=== PATIENT | male | born 1935 | race Caucasian/White ===

== ENCOUNTER 2018-01-02 12:50 | Inpatient (IN) | payer OTHER, MEDICARE ==
--- NOTE | 2018-01-02 13:16 | ER Document Report ---
ED Medical Screen (RME) - General Chief Complaint: Leg Pain Stated Complaint: NAUSEA, DIFFICULTY BREATHING, TROUBLE WALKING Time Seen by Provider: 01/02/18 13:11 TRAVEL OUTSIDE OF THE [place] IN LAST 30 DAYS: No - HPI Notes: 01/02/18 13:15 Recently moved from [place] 4 weeks ago has a history of leg pain associated with electrolyte abnormalities requiring hospitalization. - Related Data Allergies/Adverse Reactions: No Known Allergies Allergy (Unverified 01/02/18 12:54) Past Medical History - Social History Frequency of alcohol use: None Drug Abuse: None Renal/ Medical History: Denies: Hx Peritoneal Dialysis Review of Systems - Review of Systems Neurological/Psychological: Weakness Physical Exam - Vital signs Vitals: Temp Pulse Resp BP Pulse Ox 97.4 F 62 17 106/62 97 01/02/18 13:00 01/02/18 13:00 01/02/18 13:00 01/02/18 13:00 01/02/18 13:00 - Respiratory Respiratory status: No respiratory distress Chest status: Nontender Breath sounds: Normal Chest palpation: Normal Course - Re-evaluation Re-evalutation: 01/02/18 13:16 I have greeted and performed a rapid initial assessment of this patient. A comprehensive ED assessment and evaluation of the patient, analysis of test results and completion of the medical decision making process will be conducted by additional ED providers. - Vital Signs Vital signs: Temp Pulse Resp BP Pulse Ox 97.4 F 62 17 106/62 97 01/02/18 13:00 01/02/18 13:00 01/02/18 13:00 01/02/18 13:00 01/02/18 13:00
[2018-01-02 13:49] LABS: ABSOLUTE EOSINOPHILS # (AUTO) 0.6 10^3/uL (0.0-0.6); ABSOLUTE LYMPHOCYTES (AUTO) 2.4 10^3/uL (0.5-4.7); ABSOLUTE MONOCYTES (AUTO) 0.4 10^3/uL (0.1-1.4); ABSOLUTE NEUT (AUTO) 1.8 10^3/uL (1.7-8.2); BASOPHILS % (AUTO) 0.8 % (0-2); EOSINOPHILS % (AUTO) 11.5 % (0-6); HEMOGLOBIN 13.7 g/dL (13.5-17.0); LYMPHOCYTES % (AUTO) 44.8 % (13-45); MEAN CORPUSCULAR HEMOGLOBIN 30.7 pg (27.0-33.4); MEAN CORPUSCULAR HGB CONC 35.2 g/dL (32.0-36.0); MEAN CORPUSCULAR VOLUME 87 fl (80-97); MONOCYTES % (AUTO) 8.2 % (3-13); PLATELET COUNT 189 10^3/uL (150-450); RED BLOOD COUNT 4.48 10^6/uL (4.35-5.55); RED CELL DISTRIBUTION WIDTH 13.2 % (11.5-14.0); SEGMENTED NEUTROPHILS % (AUTO) 34.7 % (42-78); TOTAL CELLS COUNTED % (AUTO) 100 %; WHITE BLOOD COUNT 5.2 10^3/uL (4.0-10.5)
[2018-01-02] MEDS ORDERED: NORMAL SALINE 1000 ML 1,000 ML IV PRN (13:51)
[2018-01-02] MEDS ORDERED: NORMAL SALINE 1000 ML 1,000 ML IV ONE ×2 (13:53→19:50)
[2018-01-02 14:10] LABS: ALANINE AMINOTRANSFERASE 19 U/L (21-72); ALBUMIN 4.6 g/dL (3.5-5.0); ALKALINE PHOSPHATASE 84 U/L (38-126); ANION GAP 10 (5-19); ASPARTATE AMINO TRANSFERASE 35 U/L (17-59); BILIRUBIN,DIRECT 0.2 mg/dL (0.0-0.4); BILIRUBIN,TOTAL 0.9 mg/dL (0.2-1.3); BLOOD UREA NITROGEN 18 mg/dL (7-20); CALCIUM 9.7 mg/dL (8.4-10.2); CARBON DIOXIDE 25 mmol/L (22-30); CHLORIDE 91 mmol/L (98-107); CREATINE KINASE 123 U/L (55-170); GLUCOSE 100 mg/dL (75-110); LIPASE 79.9 U/L (23-300); POTASSIUM 4.2 mmol/L (3.6-5.0); SODIUM 126.3 mmol/L (137-145); TOTAL PROTEIN 7.4 g/dL (6.3-8.2)
[2018-01-02 14:22] LABS: NT PRO BNP 276 pg/mL (<450)
[2018-01-02 14:25] LABS: TROPONIN I < 0.012 ng/mL
--- NOTE | 2018-01-02 14:25 | RADIOLOGY REPORT (SQ) ---
EXAM DESCRIPTION: CHEST SINGLE VIEW COMPLETED DATE/TIME: 01/02/2018 2:04 pm REASON FOR STUDY: weakness COMPARISON: None. EXAM PARAMETERS: NUMBER OF VIEWS: One view. TECHNIQUE: Single frontal radiographic view of the chest acquired. RADIATION DOSE: NA LIMITATIONS: None. FINDINGS: LUNGS AND PLEURA: No acute infiltrates. Bilateral nipple shadows are evident. No pleural effusion. No pneumothorax. MEDIASTINUM AND HILAR STRUCTURES: No masses. Contour normal. HEART AND VASCULAR STRUCTURES: Heart normal in size. Normal vasculature. BONES: Osteopenic with old healed bilateral rib fractures HARDWARE: None in the chest. OTHER: No other significant finding. IMPRESSION: No acute changes TECHNICAL DOCUMENTATION: JOB ID: [id number] [employer] All Rights Reserved Reading location - IP/workstation name: [email or web address]
--- NOTE | 2018-01-02 14:52 | ER Document Report ---
ED General - General Chief Complaint: Leg Pain Stated Complaint: NAUSEA, DIFFICULTY BREATHING, TROUBLE WALKING Time Seen by Provider: 01/02/18 13:11 Mode of Arrival: Wheelchair Information source: Relative Notes: This is an 82-year-old man with a history of hypothyroidism, hyponatremia that presents to the emergency room feeling weak (generalized), decreased p.o. intake for the past 4 days. Patient did have a syncopal episode was with which was witnessed by staff in the emergency room. His blood pressure was low at that time (systolic 95). Patient states he just does not feel well. TRAVEL OUTSIDE OF THE [place] IN LAST 30 DAYS: No - HPI Onset: Just prior to arrival Onset/Duration: Sudden Quality of pain: No pain Severity: None Pain Level: Denies Associated symptoms: denies: Chest pain, Fever, Shortness of breath Exacerbated by: Denies Relieved by: Denies Similar symptoms previously: Yes Recently seen / treated by doctor: No - Related Data Allergies/Adverse Reactions: No Known Allergies Allergy (Unverified 01/02/18 12:54) Past Medical History - General Information source: Patient - Social History Smoking Status: Never Smoker Cigarette use (# per day): No Chew tobacco use (# tins/day): No Frequency of alcohol use: None Drug Abuse: None Lives with: Family Family History: Reviewed & Not Pertinent Patient has suicidal ideation: No Patient has homicidal ideation: No - Past Medical History Cardiac Medical History: Reports: None Pulmonary Medical History: Reports: None EENT Medical History: Reports: None Neurological Medical History: Reports: None Endocrine Medical History: Reports: Hx Hypothyroidism Renal/ Medical History: Reports: None. Denies: Hx Peritoneal Dialysis Malignancy Medical History: Reports None GI Medical History: Reports: None Musculoskeltal Medical History: Reports None Skin Medical History: Reports None Psychiatric Medical History: Reports: None Surgical Hx: Negative Review of Systems - Review of Systems Constitutional: denies: Chills, Fever EENT: No symptoms reported Cardiovascular: See HPI Respiratory: No symptoms reported Gastrointestinal: No symptoms reported Genitourinary: No symptoms reported Male Genitourinary: No symptoms reported Musculoskeletal: No symptoms reported Skin: No symptoms reported Hematologic/Lymphatic: No symptoms reported Neurological/Psychological: See HPI Physical Exam - Vital signs Vitals: Temp Pulse Resp BP Pulse Ox 97.4 F 62 17 106/62 97 01/02/18 13:00 01/02/18 13:00 01/02/18 13:00 01/02/18 13:00 01/02/18 13:00 Notes: Physical exam: GENERAL: 82-year-old man, alert, chronically ill, appears dehydrated. HEAD: Atraumatic, normocephalic. EYES: Pupils equal round and reactive to light, extraocular movements intact, sclera anicteric, conjunctiva are normal. ENT: TMs normal, nares patent, oropharynx clear without exudates. Dry mucous membranes. NECK: Normal range of motion, supple without obvious mass or JVD. LUNGS: Breath sounds clear to auscultation bilaterally and equal. No wheezes rales or rhonchi. HEART: Regular rate and rhythm without murmurs, rubs or gallops. ABDOMEN: Soft, normoactive bowel sounds. No tenderness to palpation. No guarding, no rebound. No masses appreciated. Back: Minimal lumbar tenderness to palpation. There was no cervical or thoracic bone tenderness Rectal: No masses palpable, stool brown, sent for study EXTREMITIES: Normal range of motion, no pitting or edema. No clubbing or cyanosis. NEUROLOGICAL: Cranial nerves II through XII grossly intact. Normal speech, moving all extremities. Gait was not assessed due to the fact the patient is two-week and syncopized in the ER. PSYCH: Normal mood, normal affect. SKIN: Warm, Dry, normal turgor, no rashes or lesions noted. Course - Vital Signs Vital signs: Temp Pulse Resp BP Pulse Ox 98.2 F 71 18 128/64 H 100 01/02/18 21:43 01/02/18 21:46 01/02/18 21:43 01/02/18 21:43 01/02/18 21:43 - Laboratory Result Diagrams: 01/02/18 13:35 01/02/18 13:35 Laboratory results interpreted by me: 01/02/18 01/02/18 01/02/18 13:35 13:35 13:35 Seg Neutrophils % 34.7 L Eosinophils % 11.5 H Sodium 126.3 L Chloride 91 L Serum Osmolality Iron ALT 19 L TSH 0.02 L 01/02/18 01/02/18 01/02/18 16:40 16:40 16:40 Seg Neutrophils % Eosinophils % Sodium Chloride Serum Osmolality 262 L Iron 45.5 L ALT TSH 0.02 L - Diagnostic Test Radiology reviewed: Image reviewed, Reports reviewed - Chest x-ray shows no infiltrates or effusions. - EKG Interpretation by Me Rate: Bradycardia Rhythm: NSR - EKG shows sinus bradycardia with a ventricular rate of 54, nonspecific ST changes, no acute ST elevations or depressions Discharge - Discharge Clinical Impression: Syncope, Generalized weakness Condition: Stable Disposition: ADMITTED INPATIENT Admitting Provider: Hospitalist - Dr. Gallegos Unit Admitted: Telemetry
--- NOTE | 2018-01-02 16:43 | RADIOLOGY REPORT (SQ) ---
EXAM DESCRIPTION: CT HEAD WITHOUT COMPLETED DATE/TIME: 01/02/2018 4:13 pm REASON FOR STUDY: encephalopathy COMPARISON: None. TECHNIQUE: Axial images acquired through the brain without intravenous contrast. Images reviewed wi th bone, brain and subdural windows. Additional sagittal and coronal reconstructions were generated. Images stored on PACS. All CT scanners at this facility use dose modulation, iterative reconstruction, and/or weight based d osing when appropriate to reduce radiation dose to as low as reasonably achievable (ALARA). [facility]: Dose Right [facility]: CareDose [facility]: Dose Right [facility]: Teradose 4D [facility]: Smart [employer] RADIATION DOSE: CT Rad equipment meets quality standard of care and radiation dose reduction techniq ues were employed. CTDIvol: 23.1 mGy. DLP: 464 mGy-cm. mGy. LIMITATIONS: None. FINDINGS: VENTRICLES: Prominent appearing ventricles in relationship to the sulci. The possibility of an underlying component of hydrocephalus is not entirely excluded. The cisterns are patent. CEREBRUM: Chronic mild small vessel ischemic changes. No masses. No hemorrhage. No midline shift. No evidence for acute infarction. CEREBELLUM: No masses. No hemorrhage. No alteration of density. No evidence for acute infarction. EXTRAAXIAL SPACES: Age related involutional changes. No fluid collections. No masses. ORBITS AND GLOBE: No intra- or extraconal masses. Normal contour of globe without masses. CALVARIUM: No fracture. PARANASAL SINUSES: Partially visualized homogeneous opacification of the right maxillary sinus. Inc reased density within the opacification may be on the basis of inspissated secretions. Deviation of the nasal septum to the right of the midline. SOFT TISSUES: No mass or hematoma. OTHER: Degenerative changes involving the visualized upper cervical spine. The visualize right vert ebral artery appears to be dominant. IMPRESSION: 1 Prominent appearing ventricles in relationship to the sulci. An underlying component of hydrocephalus is not entirely excluded. 2 no acute intracranial abnormality. 3 Chronic mild small vessel ischemic changes. EVIDENCE OF ACUTE STROKE: NO COMMENT: Quality ID # [id number]: Final reports with documentation of one or more dose reduction techniques (e.g., Automated exposure control, adjustment of the mA and/or kV according to patient size, use of iterative reconstruction technique) TECHNICAL DOCUMENTATION: JOB ID: [id number]- All Rights Reserved Reading location - IP/workstation name: [email or web address]
[2018-01-02] MEDS ORDERED: ACETAMINOPHEN 325 MG TABLET PO ONE (17:11)
[2018-01-02 17:45] LABS: FREE T3 2.86 pg/mL (2.77-5.27); FREE T4 (FREE THYROXINE) 1.05 ng/dL (0.78-2.19)
[2018-01-02 18:54] LABS: ABSOLUTE RETICS # 0.053 10^6/uL (0.028-0.122); RETICULOCYTE COUNT (AUTO) 1.17 % (0.66-2.85)
[2018-01-02 18:54] LABS: IRON(TIBC) 45.5 ug/dL (49-181)
[2018-01-02 20:08] LABS: FOLATE > 20.00 ng/mL (>2.76)
[2018-01-02] MEDS: FAMOTIDINE 20 MG TABLET PO SCH (21:56)
[2018-01-02 22:28] LABS: APPEARANCE,URINE CLEAR; BILIRUBIN,URINE NEGATIVE (NEGATIVE); COLOR,URINE YELLOW; GLUCOSE, URINE NEGATIVE (NEGATIVE); KETONES,URINE NEGATIVE (NEGATIVE); LEUKOCYTE ESTERASE,URINE MODERATE (NEGATIVE); NITRITE,URINE NEGATIVE (NEGATIVE); PROTEIN,URINE NEGATIVE (NEGATIVE); URINE SPECIFIC GRAVITY 1.015; UROBILINOGEN,URINE NEGATIVE mg/dL (<2.0)
[2018-01-02 22:38] LABS: OSMOLALITY,URINE 502 mOsm/kg (300-900)
[2018-01-02 22:45] LABS: URINE AMPHETAMINES SCREEN NEGATIVE; URINE BARBITURATES SCREEN NEGATIVE; URINE BENZODIAZEPINES SCREEN NEGATIVE; URINE COCAINE SCREEN NEGATIVE; URINE MARIJUANA (THC) SCREEN NEGATIVE; URINE METHADONE SCREEN NEGATIVE; URINE PHENCYCLIDINE SCREEN NEGATIVE
[2018-01-02 22:46] LABS: URINE SODIUM 71 mmol/L (30-90)
[2018-01-03 05:59] LABS: ANION GAP 7 (5-19); BLOOD UREA NITROGEN 14 mg/dL (7-20); CALCIUM 8.9 mg/dL (8.4-10.2); CARBON DIOXIDE 22 mmol/L (22-30); CHLORIDE 95 mmol/L (98-107); GLUCOSE 74 mg/dL (75-110); POTASSIUM 4.9 mmol/L (3.6-5.0)
[2018-01-03] MEDS ORDERED: FUROSEMIDE INJ/PF 40 MG/4 ML SDV IV ONE (06:10)
--- NOTE | 2018-01-03 06:21 | PDOC H&P ---
History of Present Illness Admission Date/PCP: 01/02/18 18:28 Patient complains of: Apathy History of Present Illness: SABRINA ARANGO is a 82 year old male with a past medical history of hypothyroidism presents with 1 week of fatigue, poor appetite and insomnia. He denies chest pain palpitations nausea vomiting. He complains of leg cramping. His granddaughter is at bedside stating he has remarked that he has forgotten his thyroid medication several times. But is otherwise without change in medications including [id number] agents. He is awake, alert and oriented 3 talkative without distress. In the emergency room he is found to have mild hyponatremia and a TSH of 0.02 is referred to the hospitalist for admission. Past Medical History Cardiac Medical History: Reports: None Pulmonary Medical History: Reports: None EENT Medical History: Reports: None Neurological Medical History: Reports: None Endocrine Medical History: Reports: Hypothyroidism Renal/ Medical History: Reports: None Malignancy Medical History: Reports: None GI Medical History: Reports: None Musculoskeltal Medical History: Reports: None Skin Medical History: Reports: None Psychiatric Medical History: Reports: None Denies: Depression Past Surgical History Past Surgical History: Reports: None Social History Lives with: Family Smoking Status: Never Smoker Frequency of Alcohol Use: None Hx Recreational Drug Use: No Drugs: None Hx Prescription Drug Abuse: No - Advance Directive Resuscitation Status: Full Code Family History Family History: Hypertension Parental Family History Reviewed: Yes Children Family History Reviewed: Yes Sibling(s) Family History Reviewed.: Yes Medication/Allergy Home Medications: Levothyroxine Sodium [Synthroid] 125 mcg PO QAM 01/02/18 Allergies/Adverse Reactions: No Known Allergies Allergy (Unverified 01/02/18 12:54) Review of Systems Constitutional: PRESENT: as per HPI, anorexia, fatigue, weakness. ABSENT: fever (s), headache(s), night sweats, weight gain, weight loss Eyes: ABSENT: visual disturbances Ears: ABSENT: hearing changes Cardiovascular: ABSENT: chest pain, dyspnea on exertion, edema, orthropnea, palpitations Respiratory: ABSENT: cough, hemoptysis Gastrointestinal: ABSENT: abdominal pain, constipation, diarrhea, hematemesis, hematochezia, nausea, vomiting Genitourinary: ABSENT: dysuria, hematuria Musculoskeletal: PRESENT: muscle weakness, other - Cramping of the lower legs. ABSENT: joint swelling Integumentary: ABSENT: rash, wounds Neurological: ABSENT: abnormal gait, abnormal speech, confusion, dizziness, focal weakness, syncope Psychiatric: ABSENT: anxiety, depression, homidical ideation, suicidal ideation Endocrine: PRESENT: as per HPI. ABSENT: cold intolerance, flushing, heat intolerance, polydipsia, polyphagia, polyuria Hematologic/Lymphatic: ABSENT: easy bleeding, easy bruising Physical Exam Vital Signs: Temp Pulse Resp BP Pulse Ox 98.3 F 67 19 120/45 L 99 01/03/18 03:49 01/03/18 03:49 01/03/18 03:49 01/03/18 03:49 01/03/18 03:49 Intake & Output 01/01/18 01/02/18 01/03/18 11:59 11:59 11:59 Intake Total 1090 Output Total 300 Balance 790 General appearance: PRESENT: no acute distress, cooperative Head exam: PRESENT: atraumatic, normocephalic Eye exam: PRESENT: conjunctiva pink, EOMI, PERRLA. ABSENT: scleral icterus Ear exam: PRESENT: normal external ear exam Mouth exam: PRESENT: moist, tongue midline Neck exam: ABSENT: carotid bruit, JVD, lymphadenopathy, thyromegaly Respiratory exam: PRESENT: clear to auscultation betzaida. ABSENT: rales, rhonchi, wheezes Cardiovascular exam: PRESENT: RRR. ABSENT: diastolic murmur, rubs, systolic murmur Pulses: PRESENT: normal dorsalis pedis pul Vascular exam: PRESENT: normal capillary refill GI/Abdominal exam: PRESENT: normal bowel sounds, soft. ABSENT: distended, guarding, mass, organolmegaly, rebound, tenderness Rectal exam: PRESENT: deferred Extremities exam: PRESENT: full ROM. ABSENT: calf tenderness, clubbing, pedal edema Neurological exam: PRESENT: alert, awake, oriented to person, oriented to place , oriented to time, oriented to situation, CN II-XII grossly intact. ABSENT: motor sensory deficit Psychiatric exam: PRESENT: appropriate affect, normal mood. ABSENT: homicidal ideation, suicidal ideation Skin exam: PRESENT: dry, intact, warm. ABSENT: cyanosis, rash Results Laboratory Results: 01/03/18 04:53 01/02/18 01/02/18 01/03/18 20:41 20:41 04:53 Sodium 124.0 L Potassium 4.9 Chloride 95 L Carbon Dioxide 22 Anion Gap 7 BUN 14 Creatinine 0.83 Est GFR ( Amer) > 60 Est GFR (Non-Af Amer) > 60 Glucose 74 L Calcium 8.9 Urine Color YELLOW Urine Appearance CLEAR Urine pH 5.0 Ur Specific [place] 1.015 Urine Protein NEGATIVE Urine Glucose (UA) NEGATIVE Urine Ketones NEGATIVE Urine Blood NEGATIVE Urine Nitrite NEGATIVE Ur Leukocyte Esterase MODERATE H Urine WBC (Auto) 12 Urine RBC (Auto) 1 Urine Osmolality 502 Impressions: Chest X-Ray 01/02/18 13:52 IMPRESSION: No acute changes Head CT 01/02/18 15:41 IMPRESSION: 1 Prominent appearing ventricles in relationship to the sulci. An underlying component of hydrocephalus is not entirely excluded. 2 no acute intracranial abnormality. 3 Chronic mild small vessel ischemic changes. EVIDENCE OF ACUTE STROKE: NO Assessment & Plan - Diagnosis (1) Subclinical hyperthyroidism Is this a current diagnosis for this admission?: Yes Plan: Undetectable TSH, unremarkable free T4 and T3, his comment suggest he has taken additional doses of Synthroid. 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 Will trial holding Synthroid. (2) Hyponatremia Is this a current diagnosis for this admission?: Yes Plan: Reduced serum osmolarity. Trial of 2 L of normal saline resulting in further reduction of sodium. Will initiate fluid restriction and single dose of IV Lasix. Follow-up chemistry every 8 hours. (3) Debility Is this a current diagnosis for this admission?: Yes Plan: Physical therapy evaluation. - Time Time Spent: 30 to 50 Minutes
[2018-01-03] MEDS: ENOXAPARIN SODIUM INJ 30 MG/0.3 ML DISP.SYRIN SUBCUT SCH (09:36)
[2018-01-03] MEDS: FAMOTIDINE 20 MG TABLET PO SCH ×2 (09:36→21:34)
[2018-01-03] MEDS: DOCUSATE SODIUM 100 MG CAPSULE PO SCH ×2 (09:36→17:16)
--- NOTE | 2018-01-03 10:42 | EKG REPORT ---
SEVERITY:- ABNORMAL ECG - SINUS RHYTHM FIRST DEGREE AV BLOCK NONSPECIFIC T ABNORMALITIES, INFERIOR LEADS : Confirmed by: Jovanny Nick 03-Jan-2018 10:41:54
[2018-01-03] MEDS: ACETAMINOPHEN 325 MG TABLET PO PRN (12:09)
[2018-01-03] MEDS: FOLIC ACID/VITAMIN B COMP W-C CAPSULE PO SCH (17:15)
--- NOTE | 2018-01-03 18:03 | Progress Note ---
Provider Note Provider Note: 82-year-old male presented to the ED presenting with weakness and fatigue. He stated that this all started about 4 days ago when he started to develop nocturnal leg cramps. Since then he has not been sleeping much. His appetite dwindled. And, he has felt generally poor. In the ED he had a sodium of 126. His TSH was 0.02. Free T4 was normal. Free T3 was also normal. I think he is experiencing nocturnal leg cramps. I think that lack of sleep is what is making him fatigued and tired throughout the day. As result, he has not been eating much or drinking much, leading to hyponatremia. I think if he was truly hyperthyroid, he would also be tachycardic, and have other signs of hyperthyroidism such as weight loss or palpitations. According to up-to-date, is reasonable to give him a trial of B complex and or diphenhydramine at bedtime. If those measures do not work, a trial gabapentin can also be considered.
[2018-01-03] MEDS: DIPHENHYDRAMINE HCL 25 MG CAPSULE PO SCH (21:34)
[2018-01-04] MEDS: DOCUSATE SODIUM 100 MG CAPSULE PO SCH ×2 (10:07→18:29)
[2018-01-04] MEDS: FAMOTIDINE 20 MG TABLET PO SCH ×2 (10:07→21:02)
[2018-01-04] MEDS: ENOXAPARIN SODIUM INJ 30 MG/0.3 ML DISP.SYRIN SUBCUT SCH (10:08)
[2018-01-04] MEDS ORDERED: NORMAL SALINE 1000 ML 1,000 ML IV ONE (11:30)
[2018-01-04 12:21] LABS: BLOOD UREA NITROGEN 14 mg/dL (7-20); CALCIUM 9.2 mg/dL (8.4-10.2); CHLORIDE 89 mmol/L (98-107); GLUCOSE 82 mg/dL (75-110); POTASSIUM 3.9 mmol/L (3.6-5.0)
[2018-01-04 12:23] LABS: ANION GAP 8 (5-19); CARBON DIOXIDE 23 mmol/L (22-30)
[2018-01-04 12:29] LABS: SODIUM 119.8 mmol/L (137-145)
[2018-01-04] MEDS ORDERED: TOLVAPTAN 15 MG TABLET PO ONE (13:30)
[2018-01-04] MEDS ORDERED: HYDROCOD/ACETAMIN 7.5-325 MG/15 ML ORAL SOLN UDCUP PO PRN (13:30)
[2018-01-04] MEDS: ACETAMINOPHEN 325 MG TABLET PO PRN (13:44)
[2018-01-04] MEDS: FOLIC ACID/VITAMIN B COMP W-C CAPSULE PO SCH (15:43)
--- NOTE | 2018-01-04 16:26 | PDOC PROGRESS REPORT ---
Subjective Progress Note for:: 01/04/18 Subjective:: No cramping overnight. He even slept longer than usual. Reason For Visit: SYNCOPE Physical Exam Vital Signs: Temp Pulse Resp BP Pulse Ox 98.6 F 58 L 16 108/51 L 97 01/04/18 12:00 01/04/18 12:00 01/04/18 12:00 01/04/18 12:00 01/04/18 12:00 Intake & Output 01/03/18 01/04/18 01/05/18 06:59 06:59 06:59 Intake Total 1120 872 Output Total 400 1315 Balance 720 -443 Weight 72.2 kg 70.4 kg General appearance: PRESENT: no acute distress, cooperative, thin Head exam: PRESENT: atraumatic, normocephalic Eye exam: PRESENT: EOMI, PERRLA Respiratory exam: PRESENT: clear to auscultation betzaida. ABSENT: rales, rhonchi, wheezes Cardiovascular exam: PRESENT: RRR. ABSENT: diastolic murmur, rubs, systolic murmur GI/Abdominal exam: PRESENT: normal bowel sounds, soft. ABSENT: distended, guarding, mass, organolmegaly, rebound, tenderness Neurological exam: PRESENT: alert, awake, oriented to person, oriented to place , oriented to time, oriented to situation, CN II-XII grossly intact. ABSENT: motor sensory deficit Psychiatric exam: PRESENT: appropriate affect, normal mood. ABSENT: homicidal ideation, suicidal ideation Skin exam: PRESENT: dry, intact, warm. ABSENT: cyanosis, rash Results Laboratory Results: 01/04/18 11:42 01/04/18 11:42 Sodium 119.8 L* Potassium 3.9 Chloride 89 L Carbon Dioxide 23 Anion Gap 8 BUN 14 Creatinine 0.91 Est GFR ( Amer) > 60 Est GFR (Non-Af Amer) > 60 Glucose 82 Calcium 9.2 Impressions: Chest X-Ray 01/02/18 13:52 IMPRESSION: No acute changes Head CT 01/02/18 15:41 IMPRESSION: 1 Prominent appearing ventricles in relationship to the sulci. An underlying component of hydrocephalus is not entirely excluded. 2 no acute intracranial abnormality. 3 Chronic mild small vessel ischemic changes. EVIDENCE OF ACUTE STROKE: NO Assessment & Plan - Diagnosis (1) Hyponatremia Is this a current diagnosis for this admission?: Yes Plan: He is not hypervolemic. He is likely hypovolemic d/t poor oral intake. Samsca 15 mg x 1 today. He continues to require hospitalization due to moderate hyponatremia. (2) Hypotension, postural Is this a current diagnosis for this admission?: Yes Plan: Today he felt weak, orthostatics were (+). So, a NaCl bolus was given. (3) Debility Is this a current diagnosis for this admission?: Yes Plan: PT eval prior to discharge. (4) Nocturnal leg cramps Is this a current diagnosis for this admission?: Yes Plan: continue diphenhydramine at night. - Time Time Spent with patient: 25-34 minutes Medications reviewed and adjusted accordingly: Yes Anticipated discharge: Home Within: within 72 hours - Inpatient Certification Based on my medical assessment, after consideration of the patient's comorbidities, presenting symptoms, or acuity I expect that the services needed warrant INPATIENT care.: Yes I certify that my determination is in accordance with my understanding of Medicare's requirements for reasonable and necessary INPATIENT services [42 CFR 412.3e].: Yes Medical Necessity: Significant Comorbidiites Make Outpatient Treatment Too Risky , Need Close Monitoring Due to Risk of Patient Decompensation, Need For IV Fluids
[2018-01-04] MEDS: DIPHENHYDRAMINE HCL 25 MG CAPSULE PO SCH (21:02)
[2018-01-05 06:08] LABS: ANION GAP 12 (5-19); BLOOD UREA NITROGEN 13 mg/dL (7-20); CALCIUM 10.5 mg/dL (8.4-10.2); CARBON DIOXIDE 22 mmol/L (22-30); CHLORIDE 102 mmol/L (98-107); GLUCOSE 79 mg/dL (75-110); POTASSIUM 4.6 mmol/L (3.6-5.0); SODIUM 135.5 mmol/L (137-145)
[2018-01-05] MEDS: FAMOTIDINE 20 MG TABLET PO SCH ×2 (10:56→22:00)
[2018-01-05] MEDS: ENOXAPARIN SODIUM INJ 30 MG/0.3 ML DISP.SYRIN SUBCUT SCH (10:56)
[2018-01-05] MEDS: DOCUSATE SODIUM 100 MG CAPSULE PO SCH ×2 (10:56→17:36)
--- NOTE | 2018-01-05 16:21 | PDOC PROGRESS REPORT ---
Subjective Progress Note for:: 01/05/18 Subjective:: No cramping overnight. He even slept even better last night. Today, he is up, awake, and reading on his cell phone. His appetite has improved dramatically. Reason For Visit: SYNCOPE,HYPONATREMIA Physical Exam Vital Signs: Temp Pulse Resp BP Pulse Ox 98.0 F 71 16 97/57 L 97 01/05/18 15:31 01/05/18 15:31 01/05/18 15:31 01/05/18 15:31 01/05/18 15:31 Intake & Output 01/04/18 01/05/18 01/06/18 06:59 06:59 06:59 Intake Total 402 480 Output Total 1600 500 Balance -1198 -20 Weight 70.6 kg General appearance: PRESENT: no acute distress, well-developed, well-nourished Head exam: PRESENT: atraumatic, normocephalic Eye exam: PRESENT: EOMI, PERRLA Mouth exam: PRESENT: neck supple Respiratory exam: PRESENT: clear to auscultation betzaida. ABSENT: rales, rhonchi, wheezes Cardiovascular exam: PRESENT: RRR. ABSENT: diastolic murmur, rubs, systolic murmur GI/Abdominal exam: PRESENT: normal bowel sounds, soft. ABSENT: distended, guarding, mass, organolmegaly, rebound, tenderness Neurological exam: PRESENT: alert, awake, oriented to person, oriented to place , oriented to time, oriented to situation, CN II-XII grossly intact. ABSENT: motor sensory deficit Psychiatric exam: PRESENT: appropriate affect, normal mood. ABSENT: homicidal ideation, suicidal ideation Skin exam: PRESENT: dry, intact, warm. ABSENT: cyanosis, rash Results Laboratory Results: 01/05/18 04:59 01/05/18 04:59 Sodium 135.5 L Potassium 4.6 Chloride 102 Carbon Dioxide 22 Anion Gap 12 BUN 13 Creatinine 1.03 Est GFR ( Amer) > 60 Est GFR (Non-Af Amer) > 60 Glucose 79 Calcium 10.5 H Impressions: Chest X-Ray 01/02/18 13:52 IMPRESSION: No acute changes Head CT 01/02/18 15:41 IMPRESSION: 1 Prominent appearing ventricles in relationship to the sulci. An underlying component of hydrocephalus is not entirely excluded. 2 no acute intracranial abnormality. 3 Chronic mild small vessel ischemic changes. EVIDENCE OF ACUTE STROKE: NO Assessment & Plan - Diagnosis (1) Hyponatremia Is this a current diagnosis for this admission?: Yes Plan: Resolved. repeat BMP in am. If normal, discharge in a.m. (2) Hypotension, postural Is this a current diagnosis for this admission?: Yes Plan: resolved. (3) Debility Is this a current diagnosis for this admission?: Yes Plan: PT eval prior to discharge. He has been up walking to the restroom without assistance. (4) Nocturnal leg cramps Is this a current diagnosis for this admission?: Yes Plan: continue diphenhydramine at night and B-complex TID - Time Time Spent with patient: 15-24 minutes Medications reviewed and adjusted accordingly: Yes Anticipated discharge: Home Within: within 24 hours - Inpatient Certification Based on my medical assessment, after consideration of the patient's comorbidities, presenting symptoms, or acuity I expect that the services needed warrant INPATIENT care.: Yes I certify that my determination is in accordance with my understanding of Medicare's requirements for reasonable and necessary INPATIENT services [42 CFR 412.3e].: Yes Medical Necessity: Need Close Monitoring Due to Risk of Patient Decompensation
[2018-01-05] MEDS: FOLIC ACID/VITAMIN B COMP W-C CAPSULE PO SCH (17:35)
[2018-01-05] MEDS: DIPHENHYDRAMINE HCL 25 MG CAPSULE PO SCH (22:00)
[2018-01-06 06:46] LABS: ANION GAP 10 (5-19); BLOOD UREA NITROGEN 15 mg/dL (7-20); CALCIUM 10.4 mg/dL (8.4-10.2); CARBON DIOXIDE 25 mmol/L (22-30); CHLORIDE 99 mmol/L (98-107); GLUCOSE 93 mg/dL (75-110); SODIUM 133.5 mmol/L (137-145)
[2018-01-06 08:15] VITALS: BP 127/72
[2018-01-06] MEDS: ENOXAPARIN SODIUM INJ 30 MG/0.3 ML DISP.SYRIN SUBCUT SCH (09:48)
[2018-01-06] MEDS: DOCUSATE SODIUM 100 MG CAPSULE PO SCH (09:48)
[2018-01-06] MEDS: FAMOTIDINE 20 MG TABLET PO SCH (09:48)
--- NOTE | 2018-01-06 10:02 | PDOC DISCHARGE SUMMARY ---
General - Admit/Disc Date/PCP Admission Date/Primary Care Provider: 01/04/18 13:45 Discharge Date: 01/06/18 - Discharge Diagnosis (1) Debility Is this a current diagnosis for this admission?: Yes (3) Hyponatremia Is this a current diagnosis for this admission?: Yes (4) Hypotension, postural Is this a current diagnosis for this admission?: Yes - Additional Information Resuscitation Status: Full Code Discharge Diet: Regular Discharge Activity: Activity As Tolerated Home Medications: Levothyroxine Sodium [Synthroid] 125 mcg PO QAM 01/02/18 History of Present Illness History of Present Illness: SABRINA ARANGO is a 82 year old male with a past medical history of hypothyroidism presents with 1 week of fatigue, poor appetite and insomnia. He denies chest pain palpitations nausea vomiting. He complains of leg cramping. His granddaughter is at bedside stating he has remarked that he has forgotten his thyroid medication several times. But is otherwise without change in medications including [id number] agents. He is awake, alert and oriented 3 talkative without distress. In the emergency room he is found to have mild hyponatremia and a TSH of 0.02 is referred to the hospitalist for admission. Hospital Course Hospital Course: Patient was admitted to the telemetry floor on the hospitalist service. He was given IV hydration over the next 2 days. His low sodium and hypotension resolved with IV hydration. His appetite improved. He slept well. He has no further issues overnight. Today he is ready for discharge. Physical Exam Vital Signs: Temp Pulse Resp BP Pulse Ox 98.4 F 74 16 127/72 H 93 01/06/18 07:13 01/06/18 07:13 01/06/18 07:13 01/06/18 08:00 01/06/18 07:13 Intake & Output 01/05/18 01/06/18 01/07/18 06:59 06:59 06:59 Intake Total 402 595 Output Total 1600 500 Balance -1198 95 Weight 70.6 kg 70.6 kg General appearance: PRESENT: no acute distress Head exam: PRESENT: atraumatic, normocephalic Eye exam: PRESENT: conjunctiva pink, EOMI, PERRLA. ABSENT: scleral icterus Ear exam: PRESENT: normal external ear exam Mouth exam: PRESENT: moist, tongue midline Neck exam: ABSENT: carotid bruit, JVD, lymphadenopathy, thyromegaly Respiratory exam: PRESENT: clear to auscultation betzaida. ABSENT: rales, rhonchi, wheezes Cardiovascular exam: PRESENT: RRR. ABSENT: diastolic murmur, rubs, systolic murmur Pulses: PRESENT: normal dorsalis pedis pul Vascular exam: PRESENT: normal capillary refill GI/Abdominal exam: PRESENT: normal bowel sounds, soft. ABSENT: distended, guarding, mass, organolmegaly, rebound, tenderness Rectal exam: PRESENT: deferred Extremities exam: PRESENT: full ROM. ABSENT: calf tenderness, clubbing, pedal edema Neurological exam: PRESENT: alert, awake, oriented to person, oriented to place , oriented to time, oriented to situation, CN II-XII grossly intact. ABSENT: motor sensory deficit Psychiatric exam: PRESENT: appropriate affect, normal mood. ABSENT: homicidal ideation, suicidal ideation Results Laboratory Results: 01/06/18 05:12 01/06/18 05:12 Sodium 133.5 L Potassium 5.0 Chloride 99 Carbon Dioxide 25 Anion Gap 10 BUN 15 Creatinine 1.08 Est GFR ( Amer) > 60 Est GFR (Non-Af Amer) > 60 Glucose 93 Calcium 10.4 H Impressions: Chest X-Ray 01/02/18 13:52 IMPRESSION: No acute changes Head CT 01/02/18 15:41 IMPRESSION: 1 Prominent appearing ventricles in relationship to the sulci. An underlying component of hydrocephalus is not entirely excluded. 2 no acute intracranial abnormality. 3 Chronic mild small vessel ischemic changes. EVIDENCE OF ACUTE STROKE: NO Qualifiers - * PATEINT BEING DISCHARGED WITH ANY OF THE FOLLOWING DIAGNOSIS?: No Plan Discharge Plan: Home with family. Follow up with primary care provider in one week
== END 2018-01-06 11:01 | disposition home or self-care (01) | DRG 641 ==
LOC: ER 12:50 → EH 18:28 → 4W 21:34 → OBSVTOIN 01-04 13:45
PROVIDERS: ADMIT Internal Medicine; ATTEND Internal Medicine
DX: E87.1 Hypo-osmolality and hyponatremia (principal); E03.9 Hypothyroidism, unspecified; I95.1 Orthostatic hypotension; R53.81 Other malaise; G47.62 Sleep related leg cramps
CPT/HCPCS: 36415; 70450; 71045; 80048; 80053; 80307; 81001; 82272; 82550; 82607; 82728; 82746; 83540; 83550; 83690; 83735; 83880; 83930; 83935; 84300; 84439; 84443; 84481; 84484; 85025; 85045; 93005; 93010; 96360; 96361; 99285; A9270-GY; G0378; G8978-GP; G8979-GP; J1650; J1940; J7030

== ENCOUNTER 2018-02-10 13:06 | Inpatient (IN) | payer OTHER, MEDICARE ==
[2018-02-10 14:21] LABS: ABSOLUTE BASOPHILS # (AUTO) 0.2 10^3/uL (0.0-0.2); ABSOLUTE LYMPHOCYTES (AUTO) 3.8 10^3/uL (0.5-4.7); ABSOLUTE MONOCYTES (AUTO) 0.8 10^3/uL (0.1-1.4); BASOPHILS % (AUTO) 1.4 % (0-2); EOSINOPHILS % (AUTO) 18.8 % (0-6); HEMATOCRIT 36.6 % (37.9-51.0); HEMOGLOBIN 13.2 g/dL (13.5-17.0); LYMPHOCYTES % (AUTO) 35.1 % (13-45); MEAN CORPUSCULAR HEMOGLOBIN 30.4 pg (27.0-33.4); MEAN CORPUSCULAR HGB CONC 36.1 g/dL (32.0-36.0); MEAN CORPUSCULAR VOLUME 84 fl (80-97); MONOCYTES % (AUTO) 7.1 % (3-13); PLATELET COUNT 321 10^3/uL (150-450); RED BLOOD COUNT 4.35 10^6/uL (4.35-5.55); SEGMENTED NEUTROPHILS % (AUTO) 37.6 % (42-78); TOTAL CELLS COUNTED % (AUTO) 100 %; WHITE BLOOD COUNT 10.7 10^3/uL (4.0-10.5)
[2018-02-10 14:38] LABS: INTERNATIONAL RATION (INR) 0.96; PROTHROMBIN TIME 13.3 SEC (11.4-15.4)
[2018-02-10 14:42] LABS: ALANINE AMINOTRANSFERASE 16 U/L (21-72); ALBUMIN 4.4 g/dL (3.5-5.0); ALKALINE PHOSPHATASE 102 U/L (38-126); ANION GAP 9 (5-19); ASPARTATE AMINO TRANSFERASE 39 U/L (17-59); BILIRUBIN,DIRECT 0.5 mg/dL (0.0-0.4); BILIRUBIN,TOTAL 1.3 mg/dL (0.2-1.3); BLOOD UREA NITROGEN 18 mg/dL (7-20); CALCIUM 9.7 mg/dL (8.4-10.2); CARBON DIOXIDE 25 mmol/L (22-30); CHLORIDE 86 mmol/L (98-107); GLUCOSE 97 mg/dL (75-110); POTASSIUM 4.1 mmol/L (3.6-5.0); TOTAL PROTEIN 7.7 g/dL (6.3-8.2)
[2018-02-10 15:05] LABS: SODIUM 120.4 mmol/L (137-145)
[2018-02-10] MEDS ORDERED: NORMAL SALINE 1000 ML 1,000 ML IV ONE ×2 (15:14→17:03)
[2018-02-10] MEDS ORDERED: NORMAL SALINE 500 ML IV ONE (15:14)
--- NOTE | 2018-02-10 15:41 | ER Document Report ---
ED General - General Chief Complaint: Vomiting Stated Complaint: NAUSEA,DIZZINESS Time Seen by Provider: 02/10/18 13:52 TRAVEL OUTSIDE OF THE [place] IN LAST 30 DAYS: No - HPI Patient complains to provider of: Vomiting dizziness Notes: Patient coming in with grandmother bedside states vomiting dizziness ongoing for the last few days. Patient has a history of hyponatremia required admission Patient denies any fevers chills nausea vomiting diarrhea is actually resting very comfortably upon my evaluation. - Related Data Allergies/Adverse Reactions: No Known Allergies Allergy (Verified 02/10/18 14:33) Past Medical History - Social History Smoking Status: Never Smoker Chew tobacco use (# tins/day): No Frequency of alcohol use: None Drug Abuse: None Family History: Hypertension Patient has suicidal ideation: No Patient has homicidal ideation: No Endocrine Medical History: Reports: Hx Hypothyroidism Renal/ Medical History: Denies: Hx Peritoneal Dialysis Psychiatric Medical History: Denies: Hx Depression Review of Systems - Review of Systems Constitutional: Other - Vomiting and dizziness EENT: No symptoms reported Cardiovascular: No symptoms reported Respiratory: No symptoms reported Gastrointestinal: No symptoms reported Genitourinary: No symptoms reported Male Genitourinary: No symptoms reported Musculoskeletal: No symptoms reported Skin: No symptoms reported Hematologic/Lymphatic: No symptoms reported Neurological/Psychological: No symptoms reported Physical Exam - Vital signs Vitals: Temp Pulse Resp BP Pulse Ox 97.7 F 58 L 20 120/59 L 97 02/10/18 13:19 02/10/18 13:19 02/10/18 13:19 02/10/18 13:19 02/10/18 13:19 Interpretation: Normal - General General appearance: Appears well, Alert - HEENT Head: Normocephalic, Atraumatic Eyes: Normal Pupils: PERRL - Respiratory Respiratory status: No respiratory distress Chest status: Nontender Breath sounds: Normal Chest palpation: Normal - Cardiovascular Rhythm: Regular Heart sounds: Normal auscultation Murmur: No - Abdominal Inspection: Normal Distension: No distension Bowel sounds: Normal Tenderness: Nontender Organomegaly: No organomegaly - Back Back: Normal, Nontender - Extremities General upper extremity: Normal inspection, Nontender, Normal color, Normal ROM , Normal temperature General lower extremity: Normal inspection, Nontender, Normal color, Normal ROM , Normal temperature, Normal weight bearing. No: Jeff's sign - Neurological Neuro grossly intact: Yes Cognition: Normal Orientation: AAOx4 [place] Coma Scale Eye Opening: Spontaneous [place] Coma Scale Verbal: Oriented [place] Coma Scale Motor: Obeys Commands [place] Coma Scale Total: 15 Speech: Normal Motor strength normal: LUE, RUE, LLE, RLE Sensory: Normal - Psychological Associated symptoms: Normal affect, Normal mood - Skin Skin Temperature: Warm Skin Moisture: Dry Skin Color: Normal Course - Re-evaluation Re-evalutation: 02/10/18 22:32 Laboratory studies show a sodium of 120. I did review the patient's previous admission would be hyponatremic due to dehydration. Patient case was discussed with hospitalist will admit the patient for further evaluation gentle IV hydration. - Vital Signs Vital signs: Temp Pulse Resp BP Pulse Ox 97.9 F 56 L 18 131/73 H 99 02/10/18 20:00 02/10/18 20:00 02/10/18 20:00 02/10/18 20:00 02/10/18 20:00 - Laboratory Result Diagrams: 02/10/18 14:05 02/10/18 14:05 Laboratory results interpreted by me: 02/10/18 02/10/18 02/10/18 14:05 14:05 14:05 WBC 10.7 H Hgb 13.2 L Hct 36.6 L MCHC 36.1 H Seg Neutrophils % 37.6 L Eosinophils % 18.8 H Absolute Eosinophils 2.0 H Sodium 120.4 L* Chloride 86 L Direct Bilirubin 0.5 H ALT 16 L TSH 0.08 L Discharge - Discharge Clinical Impression: Hyponatremia, Nausea, Dizziness Condition: Good Disposition: ADMITTED INPATIENT Admitting Provider: Hospitalist Unit Admitted: Medical Floor - [facility]
[2018-02-10] MEDS ORDERED: IPRATROPIUM/ALBUTEROL 0.5-2.5 MG/3 ML AMPUL NEB PRN (16:57)
--- NOTE | 2018-02-10 17:17 | PDOC H&P ---
History of Present Illness Admission Date/PCP: 02/10/18 15:55 Patient complains of: Generalized weakness and malaise 3 days History of Present Illness: SABRINA ARANGO is a 83 year old male Patient was brought to the emergency room complaints of generalized weakness and malaise for about 3 days. He apparently had been doing well up to 3 days ago. He is usually ambulatory without any assistive device. He lives with his granddaughter who says that prior to recently moving in with him and had been independent and doing okay by himself. He was brought to the emergency room for further evaluation due to heme chest pain we can basically laying in bed all day yesterday. There is no complaints of fever, chest pain, diarrhea, nausea or vomiting or abdominal pain. Patient is usually takes only Synthroid and no other medications. He was actually needed to this hospital back in January incidentally for the same complaints and same diagnosis of hyponatremia. Past Medical History Endocrine Medical History: Reports: Hypothyroidism Psychiatric Medical History: Denies: Depression Social History Information Source: Patient Lives with: Family Smoking Status: Never Smoker Frequency of Alcohol Use: None Hx Recreational Drug Use: No Drugs: None Hx Prescription Drug Abuse: No - Advance Directive Resuscitation Status: Full Code Family History Family History: Hypertension Parental Family History Reviewed: No Children Family History Reviewed: NA Sibling(s) Family History Reviewed.: NA Medication/Allergy Home Medications: Levothyroxine Sodium [Synthroid] 125 mcg PO QAM 01/02/18 Allergies/Adverse Reactions: No Known Allergies Allergy (Verified 02/10/18 14:33) Review of Systems Constitutional: ABSENT: chills, fever(s), headache(s), weight gain, weight loss Eyes: ABSENT: visual disturbances Ears: ABSENT: hearing changes Gastrointestinal: ABSENT: abdominal pain, constipation, diarrhea, hematemesis, hematochezia, nausea, vomiting Genitourinary: ABSENT: dysuria, hematuria Integumentary: ABSENT: rash, wounds Neurological: PRESENT: weakness. ABSENT: abnormal gait, abnormal speech, confusion, dizziness, focal weakness, syncope Endocrine: ABSENT: cold intolerance, heat intolerance, polydipsia, polyuria Hematologic/Lymphatic: ABSENT: easy bleeding, easy bruising Physical Exam Vital Signs: Temp Pulse Resp BP Pulse Ox 97.7 F 58 L 10 L 117/61 100 02/10/18 13:19 02/10/18 13:19 02/10/18 15:01 02/10/18 15:01 02/10/18 15:01 General appearance: PRESENT: no acute distress - elderly and frail Cardiovascular exam: PRESENT: RRR. ABSENT: diastolic murmur, rubs, systolic murmur Pulses: PRESENT: normal dorsalis pedis pul GI/Abdominal exam: PRESENT: normal bowel sounds, soft. ABSENT: distended, guarding, mass, organolmegaly, rebound, tenderness Extremities exam: PRESENT: full ROM. ABSENT: calf tenderness, clubbing, pedal edema Neurological exam: PRESENT: alert, awake, oriented to person, oriented to place , oriented to time, oriented to situation Psychiatric exam: PRESENT: flat affect Results Laboratory Results: Laboratory 02/10/18 02/10/18 02/10/18 14:05 14:05 14:05 WBC 10.7 H RBC 4.35 Hgb 13.2 L Hct 36.6 L MCV 84 MCH 30.4 MCHC 36.1 H RDW 13.0 Plt Count 321 Seg Neutrophils % 37.6 L Lymphocytes % 35.1 Monocytes % 7.1 Eosinophils % 18.8 H Basophils % 1.4 Absolute Neutrophils 4.0 Absolute Lymphocytes 3.8 Absolute Monocytes 0.8 Absolute Eosinophils 2.0 H Absolute Basophils 0.2 PT 13.3 INR 0.96 Sodium 120.4 L* Potassium 4.1 Chloride 86 L Carbon Dioxide 25 Anion Gap 9 BUN 18 Creatinine 1.03 Est GFR ( Amer) > 60 Est GFR (Non-Af Amer) > 60 Glucose 97 Lactic Acid Calcium 9.7 Total Bilirubin 1.3 Direct Bilirubin 0.5 H Neonat Total Bilirubin Not Reportable Neonat Direct Bilirubin Not Reportable Neonat Indirect Bili Not Reportable AST 39 ALT 16 L Alkaline Phosphatase 102 Total Protein 7.7 Albumin 4.4 TSH 02/10/18 02/10/18 14:05 14:18 WBC RBC Hgb Hct MCV MCH MCHC RDW Plt Count Seg Neutrophils % Lymphocytes % Monocytes % Eosinophils % Basophils % Absolute Neutrophils Absolute Lymphocytes Absolute Monocytes Absolute Eosinophils Absolute Basophils PT INR Sodium Potassium Chloride Carbon Dioxide Anion Gap BUN Creatinine Est GFR ( Amer) Est GFR (Non-Af Amer) Glucose Lactic Acid 1.3 Calcium Total Bilirubin Direct Bilirubin Neonat Total Bilirubin Neonat Direct Bilirubin Neonat Indirect Bili AST ALT Alkaline Phosphatase Total Protein Albumin TSH 0.08 L Assessment & Plan - Diagnosis (1) Hyponatremia Is this a current diagnosis for this admission?: Yes Plan: Precise etiology of this is unclear as patient is on no diuretic or any other medications aside from Synthroid. He is grossly over replaced with him being iatrogenically hyperthyroid however it is unclear if this can explain this degree of hyponatremia as does appear to be dehydrated although euvolemic I will go ahead and give him normal saline and at this point there is no indication for 3% saline as there is no neurological findings. We will check his urine electrolytes. (2) Hypothyroidism Is this a current diagnosis for this admission?: Yes Plan: Patient is currently hypothyroid. I will cut down on his Synthroid dose and check free T4 and T3 with further adjustment as needed. (3) Full code status Is this a current diagnosis for this admission?: Yes Plan: Patient is a full code. I did discuss with his granddaughter the need for an advanced directive and a choice of a POA in case patient is unable to make a choice for himself. She will discuss with the rest of the family for further guidance. Patient apparently had been making his decisions by himself up to now - Time Time Spent: 50 to 70 Minutes Medications reviewed and adjusted accordingly: Yes Anticipated discharge: Home with Homehealth Within: within 48 hours - Inpatient Certification Based on my medical assessment, after consideration of the patient's comorbidities, presenting symptoms, or acuity I expect that the services needed warrant INPATIENT care.: Yes Medical Necessity: Need For IV Fluids
[2018-02-10 18:21] LABS: APPEARANCE,URINE CLEAR; BILIRUBIN,URINE NEGATIVE (NEGATIVE); COLOR,URINE YELLOW; GLUCOSE, URINE NEGATIVE (NEGATIVE); KETONES,URINE TRACE mg/dL (NEGATIVE); LEUKOCYTE ESTERASE,URINE SMALL (NEGATIVE); NITRITE,URINE NEGATIVE (NEGATIVE); PROTEIN,URINE NEGATIVE (NEGATIVE); URINE SPECIFIC GRAVITY 1.012; UROBILINOGEN,URINE NEGATIVE mg/dL (<2.0)
[2018-02-10 18:36] LABS: URINE SODIUM 116 mmol/L (30-90)
[2018-02-10 18:42] LABS: OSMOLALITY,URINE 457 mOsm/kg (300-900)
--- NOTE | 2018-02-10 18:47 | EKG REPORT ---
SEVERITY:- ABNORMAL ECG - SINUS BRADYCAARDIA WITH FIRST DEGREE AVB NONSPECIFIC INTRAVENTRICULAR CONDUCTION DELAY POSSIBLE OLD TRUE POSTERIOR [place] NONSPECIFIC ST-T CHANGES- INFERIOR LEADS : Confirmed by: Sudheer Cabrales MD 10-Feb-2018 18:46:32
[2018-02-10] MEDS ORDERED: ENOXAPARIN SODIUM INJ 40 MG/0.4 ML DISP.SYRIN SUBCUT ONE (19:00)
[2018-02-10] MEDS ORDERED: RIVAROXABAN 10 MG TABLET PO SCH (22:00)
[2018-02-10] MEDS: ACETAMINOPHEN 325 MG TABLET PO PRN (23:52)
[2018-02-11 06:10] LABS: ABSOLUTE LYMPHOCYTES (AUTO) 1.9 10^3/uL (0.5-4.7); ABSOLUTE MONOCYTES (AUTO) 0.4 10^3/uL (0.1-1.4); ABSOLUTE NEUT (AUTO) 1.8 10^3/uL (1.7-8.2); BASOPHILS % (AUTO) 0.6 % (0-2); EOSINOPHILS % (AUTO) 19.8 % (0-6); HEMATOCRIT 33.4 % (37.9-51.0); HEMOGLOBIN 12.1 g/dL (13.5-17.0); MEAN CORPUSCULAR HEMOGLOBIN 30.3 pg (27.0-33.4); MEAN CORPUSCULAR HGB CONC 36.1 g/dL (32.0-36.0); MEAN CORPUSCULAR VOLUME 84 fl (80-97); MONOCYTES % (AUTO) 8.5 % (3-13); PLATELET COUNT 185 10^3/uL (150-450); RED BLOOD COUNT 3.98 10^6/uL (4.35-5.55); RED CELL DISTRIBUTION WIDTH 12.9 % (11.5-14.0); SEGMENTED NEUTROPHILS % (AUTO) 35.1 % (42-78); TOTAL CELLS COUNTED % (AUTO) 100 %; WHITE BLOOD COUNT 5.2 10^3/uL (4.0-10.5)
[2018-02-11 06:27] LABS: ANION GAP 9 (5-19); BLOOD UREA NITROGEN 15 mg/dL (7-20); CALCIUM 8.7 mg/dL (8.4-10.2); CARBON DIOXIDE 20 mmol/L (22-30); CHLORIDE 91 mmol/L (98-107); GLUCOSE 72 mg/dL (75-110); POTASSIUM 4.5 mmol/L (3.6-5.0)
[2018-02-11 06:43] LABS: FREE T3 2.47 pg/mL (2.77-5.27); FREE T4 (FREE THYROXINE) 1.06 ng/dL (0.78-2.19); SODIUM 120.3 mmol/L (137-145)
[2018-02-11] MEDS ORDERED: LEVOTHYROXINE SODIUM 50 MCG PO SCH (08:00)
[2018-02-11] MEDS: ONDANSETRON HCL INJ/PF 4 MG/2 ML SDV IV PRN ×2 (08:39→17:04)
[2018-02-11] MEDS: ENOXAPARIN SODIUM INJ 40 MG/0.4 ML DISP.SYRIN SUBCUT SCH (09:01)
[2018-02-11] MEDS: LEVOTHYROXINE SODIUM 0.05 MG TABLET PO SCH (09:01)
[2018-02-11] MEDS: DOCUSATE SODIUM 100 MG CAPSULE PO SCH (09:02)
[2018-02-11] MEDS: ACETAMINOPHEN 325 MG TABLET PO PRN (11:38)
--- NOTE | 2018-02-11 12:04 | PDOC PROGRESS REPORT ---
Subjective Progress Note for:: 02/11/18 Subjective:: Patient was brought to the emergency room complaints of generalized weakness and malaise for about 3 days. He apparently had been doing well up to 3 days ago. He is usually ambulatory without any assistive device. He lives with his granddaughter who says that prior to recently moving in with him and had been independent and doing okay by himself. He was brought to the emergency room for further evaluation due to heme chest pain we can basically laying in bed all day yesterday. There is no complaints of fever, chest pain, diarrhea, nausea or vomiting or abdominal pain. Patient is usually takes only Synthroid and no other medications. He was actually needed to this hospital back in January incidentally for the same complaints and same diagnosis of hyponatremia. Reason For Visit: HYPONATREMIA,NAUSEA,DIZZINESS Physical Exam Vital Signs: Temp Pulse Resp BP Pulse Ox 97.7 F 58 L 10 L 117/61 100 02/10/18 13:19 02/10/18 13:19 02/10/18 15:01 02/10/18 15:01 02/10/18 15:01 General appearance: PRESENT: no acute distress, cooperative, thin - Elderly and frail Head exam: PRESENT: atraumatic Mouth exam: PRESENT: dry mucosa Neck exam: ABSENT: carotid bruit, JVD, lymphadenopathy, thyromegaly Respiratory exam: PRESENT: clear to auscultation betzaida. ABSENT: rales, rhonchi, wheezes Cardiovascular exam: PRESENT: RRR. ABSENT: diastolic murmur, rubs, systolic murmur Pulses: PRESENT: normal dorsalis pedis pul GI/Abdominal exam: PRESENT: normal bowel sounds, soft. ABSENT: distended, guarding, mass, organolmegaly, rebound, tenderness Rectal exam: PRESENT: deferred Extremities exam: PRESENT: full ROM. ABSENT: calf tenderness, clubbing, pedal edema Musculoskeletal exam: PRESENT: ambulatory Neurological exam: PRESENT: alert, awake, oriented to person, oriented to place , oriented to time, oriented to situation, ataxia, CN II-XII grossly intact Psychiatric exam: PRESENT: flat affect Results Laboratory Results: Labs- All tests 24 hr 02/10/18 02/10/18 02/10/18 14:05 14:05 14:05 WBC 10.7 H RBC 4.35 Hgb 13.2 L Hct 36.6 L MCV 84 MCH 30.4 MCHC 36.1 H RDW 13.0 Plt Count 321 Seg Neutrophils % 37.6 L Lymphocytes % 35.1 Monocytes % 7.1 Eosinophils % 18.8 H Basophils % 1.4 Absolute Neutrophils 4.0 Absolute Lymphocytes 3.8 Absolute Monocytes 0.8 Absolute Eosinophils 2.0 H Absolute Basophils 0.2 PT 13.3 INR 0.96 Sodium 120.4 L* Potassium 4.1 Chloride 86 L Carbon Dioxide 25 Anion Gap 9 BUN 18 Creatinine 1.03 Est GFR ( Amer) > 60 Est GFR (Non-Af Amer) > 60 Glucose 97 Lactic Acid Calcium 9.7 Total Bilirubin 1.3 Direct Bilirubin 0.5 H Neonat Total Bilirubin Not Reportable Neonat Direct Bilirubin Not Reportable Neonat Indirect Bili Not Reportable AST 39 ALT 16 L Alkaline Phosphatase 102 Total Protein 7.7 Albumin 4.4 TSH Free T4 Free T3 pg/mL Urine Color Urine Appearance Urine pH Ur Specific Adams Urine Protein Urine Glucose (UA) Urine Ketones Urine Blood Urine Nitrite Urine Bilirubin Urine Urobilinogen Ur Leukocyte Esterase Urine WBC (Auto) Urine RBC (Auto) U Hyaline Cast (Auto) Urine Mucus (Auto) Urine Osmolality Urine Sodium Urine Ascorbic Acid 02/10/18 02/10/18 02/10/18 14:05 14:18 18:07 WBC RBC Hgb Hct MCV MCH MCHC RDW Plt Count Seg Neutrophils % Lymphocytes % Monocytes % Eosinophils % Basophils % Absolute Neutrophils Absolute Lymphocytes Absolute Monocytes Absolute Eosinophils Absolute Basophils PT INR Sodium Potassium Chloride Carbon Dioxide Anion Gap BUN Creatinine Est GFR ( Amer) Est GFR (Non-Af Amer) Glucose Lactic Acid 1.3 Calcium Total Bilirubin Direct Bilirubin Neonat Total Bilirubin Neonat Direct Bilirubin Neonat Indirect Bili AST ALT Alkaline Phosphatase Total Protein Albumin TSH 0.08 L Free T4 Free T3 pg/mL Urine Color YELLOW Urine Appearance CLEAR Urine pH 6.0 Ur Specific Adams 1.012 Urine Protein NEGATIVE Urine Glucose (UA) NEGATIVE Urine Ketones TRACE H Urine Blood NEGATIVE Urine Nitrite NEGATIVE Urine Bilirubin NEGATIVE Urine Urobilinogen NEGATIVE Ur Leukocyte Esterase SMALL H Urine WBC (Auto) 1 Urine RBC (Auto) 1 U Hyaline Cast (Auto) 1 Urine Mucus (Auto) RARE Urine Osmolality Urine Sodium Urine Ascorbic Acid NEGATIVE 02/10/18 02/11/18 02/11/18 18:07 05:15 05:15 WBC 5.2 RBC 3.98 L Hgb 12.1 L Hct 33.4 L MCV 84 MCH 30.3 MCHC 36.1 H RDW 12.9 Plt Count 185 Seg Neutrophils % 35.1 L Lymphocytes % 36.0 Monocytes % 8.5 Eosinophils % 19.8 H Basophils % 0.6 Absolute Neutrophils 1.8 Absolute Lymphocytes 1.9 Absolute Monocytes 0.4 Absolute Eosinophils 1.0 H Absolute Basophils 0.0 PT INR Sodium 120.3 L* Potassium 4.5 Chloride 91 L Carbon Dioxide 20 L Anion Gap 9 BUN 15 Creatinine 0.87 Est GFR ( Amer) > 60 Est GFR (Non-Af Amer) > 60 Glucose 72 L Lactic Acid Calcium 8.7 Total Bilirubin Direct Bilirubin Neonat Total Bilirubin Neonat Direct Bilirubin Neonat Indirect Bili AST ALT Alkaline Phosphatase Total Protein Albumin TSH Free T4 Free T3 pg/mL Urine Color Urine Appearance Urine pH Ur Specific Adams Urine Protein Urine Glucose (UA) Urine Ketones Urine Blood Urine Nitrite Urine Bilirubin Urine Urobilinogen Ur Leukocyte Esterase Urine WBC (Auto) Urine RBC (Auto) U Hyaline Cast (Auto) Urine Mucus (Auto) Urine Osmolality 457 Urine Sodium 116 H Urine Ascorbic Acid 02/11/18 05:15 WBC RBC Hgb Hct MCV MCH MCHC RDW Plt Count Seg Neutrophils % Lymphocytes % Monocytes % Eosinophils % Basophils % Absolute Neutrophils Absolute Lymphocytes Absolute Monocytes Absolute Eosinophils Absolute Basophils PT INR Sodium Potassium Chloride Carbon Dioxide Anion Gap BUN Creatinine Est GFR ( Amer) Est GFR (Non-Af Amer) Glucose Lactic Acid Calcium Total Bilirubin Direct Bilirubin Neonat Total Bilirubin Neonat Direct Bilirubin Neonat Indirect Bili AST ALT Alkaline Phosphatase Total Protein Albumin TSH Free T4 1.06 Free T3 pg/mL 2.47 L Urine Color Urine Appearance Urine pH Ur Specific Adams Urine Protein Urine Glucose (UA) Urine Ketones Urine Blood Urine Nitrite Urine Bilirubin Urine Urobilinogen Ur Leukocyte Esterase Urine WBC (Auto) Urine RBC (Auto) U Hyaline Cast (Auto) Urine Mucus (Auto) Urine Osmolality Urine Sodium Urine Ascorbic Acid Assessment & Plan - Diagnosis (1) Hyponatremia Is this a current diagnosis for this admission?: Yes Plan: Precise etiology of this is unclear as patient is on no diuretic or any other medications aside from Synthroid. Urine electrolytes also noted with low sodium and osmolality relatively poor. Patient does appear to b clinically dry. Will cont with IV NS (2) Hypothyroidism Qualifiers: Hypothyroidism type: acquired Qualified Code(s): E03.9 - Hypothyroidism, unspecified Is this a current diagnosis for this admission?: Yes Plan: Patient is currently hyperthyroid. Synthroid dose decreased to 50mcg from 125mcg (3) Full code status Is this a current diagnosis for this admission?: Yes Plan: Patient is a full code. I did discuss with his granddaughter the need for an advanced directive and a choice of a POA in case patient is unable to make a choice for himself. She will discuss with the rest of the family for further guidance. Patient apparently had been making his decisions by himself up to now (4) Eosinophilia Is this a current diagnosis for this admission?: Yes Plan: Precise etiology and significance is unclear. - Time Time Spent with patient: 15-24 minutes Medications reviewed and adjusted accordingly: Yes Anticipated discharge: Home with Homehealth Within: within 72 hours - Inpatient Certification Based on my medical assessment, after consideration of the patient's comorbidities, presenting symptoms, or acuity I expect that the services needed warrant INPATIENT care.: Yes Medical Necessity: Need For IV Fluids, Risk of Complication if Not Cared For in Hospital
[2018-02-11] MEDS: NORMAL SALINE 1000 ML 1,000 ML IV PRN (12:49)
[2018-02-12] MEDS: NORMAL SALINE 1000 ML 1,000 ML IV PRN ×3 (00:41→20:07)
[2018-02-12 05:27] LABS: ANION GAP 9 (5-19); BLOOD UREA NITROGEN 13 mg/dL (7-20); CALCIUM 8.7 mg/dL (8.4-10.2); CARBON DIOXIDE 20 mmol/L (22-30); CHLORIDE 91 mmol/L (98-107); GLUCOSE 74 mg/dL (75-110)
[2018-02-12 05:38] LABS: SODIUM 119.6 mmol/L (137-145)
[2018-02-12] MEDS: LEVOTHYROXINE SODIUM 0.05 MG TABLET PO SCH (09:08)
[2018-02-12] MEDS: ENOXAPARIN SODIUM INJ 40 MG/0.4 ML DISP.SYRIN SUBCUT SCH (09:11)
[2018-02-12] MEDS: DOCUSATE SODIUM 100 MG CAPSULE PO SCH (09:12)
[2018-02-12] MEDS: ONDANSETRON HCL INJ/PF 4 MG/2 ML SDV IV PRN ×2 (09:51→20:05)
--- NOTE | 2018-02-12 13:35 | PDOC PROGRESS REPORT ---
Subjective Progress Note for:: 02/12/18 Subjective:: Patient was brought to the emergency room complaints of generalized weakness and malaise for about 3 days. He apparently had been doing well up to 3 days ago. He is usually ambulatory without any assistive device. He lives with his granddaughter who says that prior to recently moving in with him and had been independent and doing okay by himself. He was brought to the emergency room for further evaluation due to heme chest pain we can basically laying in bed all day yesterday. There is no complaints of fever, chest pain, diarrhea, nausea or vomiting or abdominal pain. Patient is usually takes only Synthroid and no other medications. He was actually needed to this hospital back in January incidentally for the same complaints and same diagnosis of hyponatremia. Reason For Visit: HYPONATREMIA,HYPOTHYROIDISM Physical Exam Vital Signs: Temp Pulse Resp BP Pulse Ox 97.5 F 57 L 16 138/69 H 100 02/12/18 11:10 02/12/18 11:10 02/12/18 11:10 02/12/18 11:10 02/12/18 11:10 Intake & Output 02/11/18 02/12/18 02/13/18 06:59 06:59 06:59 Intake Total 1310 2458 100 Output Total 475 2075 150 Balance 835 383 -50 Weight 71.4 kg 73.3 kg General appearance: PRESENT: no acute distress - elderly gntleman Eye exam: PRESENT: conjunctiva pink, EOMI, PERRLA. ABSENT: scleral icterus Neck exam: ABSENT: carotid bruit, JVD, lymphadenopathy, thyromegaly Respiratory exam: PRESENT: clear to auscultation betzaida. ABSENT: rales, rhonchi, wheezes Cardiovascular exam: PRESENT: RRR. ABSENT: diastolic murmur, rubs, systolic murmur GI/Abdominal exam: PRESENT: normal bowel sounds, soft. ABSENT: distended, guarding, mass, organolmegaly, rebound, tenderness Rectal exam: PRESENT: deferred Musculoskeletal exam: PRESENT: ambulatory Neurological exam: PRESENT: alert, awake. ABSENT: oriented to situation Psychiatric exam: PRESENT: flat affect Results Laboratory Results: 02/11/18 05:15 02/12/18 04:10 02/12/18 04:10 Sodium 119.6 L* Potassium 4.0 Chloride 91 L Carbon Dioxide 20 L Anion Gap 9 BUN 13 Creatinine 0.87 Est GFR ( Amer) > 60 Est GFR (Non-Af Amer) > 60 Glucose 74 L Calcium 8.7 02/10/18 18:07 Clean Catch Midstream Urine Culture - Final Mixed Urogenital Yamini Assessment & Plan - Diagnosis (1) Hyponatremia Is this a current diagnosis for this admission?: Yes Plan: Precise etiology of this is unclear as patient is on no diuretic or any other medications aside from Synthroid. Urine electrolytes also noted with elevated sodium and osmolality relatively low. Patient is clinically dry. Will cont with IV NS He had the same presentation in January and this cleared up pretty nicely however if this is persistent may need to search for or rule out other etiologies. I doubt that hypothyroidism would explain this. (2) Hypothyroidism Qualifiers: Hypothyroidism type: acquired Qualified Code(s): E03.9 - Hypothyroidism, unspecified Is this a current diagnosis for this admission?: Yes Plan: Patient is currently hyperthyroid. Synthroid dose decreased to 50mcg from 125mcg (3) Full code status Is this a current diagnosis for this admission?: Yes Plan: Patient is a full code. I did discuss with his granddaughter the need for an advanced directive and a choice of a POA in case patient is unable to make a choice for himself. She will discuss with the rest of the family for further guidance. Patient apparently had been making his decisions by himself up to now (4) Eosinophilia Is this a current diagnosis for this admission?: Yes Plan: F/u on labs in am - Time Time Spent with patient: 15-24 minutes Anticipated discharge: Home with Homehealth Within: within 72 hours - Inpatient Certification Based on my medical assessment, after consideration of the patient's comorbidities, presenting symptoms, or acuity I expect that the services needed warrant INPATIENT care.: Yes Medical Necessity: Need For IV Fluids - Plan Summary Plan Summary: Urinalysis shows negative nitrites and wbc. He is not being treated for UTI
[2018-02-12] MEDS: ACETAMINOPHEN 325 MG TABLET PO PRN (15:21)
[2018-02-12] MEDS ORDERED: IBUPROFEN 400 MG TABLET PO PRN (18:13)
[2018-02-13 05:02] LABS: ABSOLUTE BASOPHILS # (AUTO) 0.1 10^3/uL (0.0-0.2); ABSOLUTE EOSINOPHILS # (AUTO) 0.9 10^3/uL (0.0-0.6); ABSOLUTE LYMPHOCYTES (AUTO) 1.7 10^3/uL (0.5-4.7); ABSOLUTE MONOCYTES (AUTO) 0.5 10^3/uL (0.1-1.4); ABSOLUTE NEUT (AUTO) 1.3 10^3/uL (1.7-8.2); BASOPHILS % (AUTO) 1.1 % (0-2); EOSINOPHILS % (AUTO) 20.3 % (0-6); HEMATOCRIT 33.6 % (37.9-51.0); HEMOGLOBIN 12.3 g/dL (13.5-17.0); LYMPHOCYTES % (AUTO) 39.2 % (13-45); MEAN CORPUSCULAR HEMOGLOBIN 30.4 pg (27.0-33.4); MEAN CORPUSCULAR HGB CONC 36.4 g/dL (32.0-36.0); MEAN CORPUSCULAR VOLUME 83 fl (80-97); MONOCYTES % (AUTO) 11.4 % (3-13); PLATELET COUNT 194 10^3/uL (150-450); RED BLOOD COUNT 4.04 10^6/uL (4.35-5.55); TOTAL CELLS COUNTED % (AUTO) 100 %; WHITE BLOOD COUNT 4.5 10^3/uL (4.0-10.5)
[2018-02-13 05:33] LABS: BLOOD UREA NITROGEN 11 mg/dL (7-20); CALCIUM 8.7 mg/dL (8.4-10.2); CARBON DIOXIDE 18 mmol/L (22-30); CHLORIDE 89 mmol/L (98-107); GLUCOSE 65 mg/dL (75-110); POTASSIUM 4.3 mmol/L (3.6-5.0)
[2018-02-13 05:35] LABS: ANION GAP 12 (5-19)
[2018-02-13 06:27] LABS: SODIUM 119.4 mmol/L (137-145)
[2018-02-13] MEDS ORDERED: FUROSEMIDE INJ/PF 40 MG/4 ML SDV IV ONE (06:27)
[2018-02-13] MEDS: LEVOTHYROXINE SODIUM 0.05 MG TABLET PO SCH (08:27)
[2018-02-13] MEDS: ONDANSETRON HCL INJ/PF 4 MG/2 ML SDV IV PRN (08:44)
[2018-02-13] MEDS ORDERED: PROMETHAZINE HCL INJ 25 MG/1 ML VIAL IV PRN (09:28)
--- NOTE | 2018-02-13 09:36 | PDOC PROGRESS REPORT ---
Subjective Progress Note for:: 02/13/18 Subjective:: Patient is seen resting in bed. He is complaining of nausea at the present time. He apparently had been doing well up to 3 days ago. He is usually ambulatory without any assistive device. He lives with his granddaughter who says that prior to recently moving in with him and had been independent and doing okay by himself. He was brought to the emergency room for further evaluation due to heme chest pain we can basically laying in bed all day yesterday. There is no complaints of fever, chest pain, diarrhea, nausea or vomiting or abdominal pain. Patient is usually takes only Synthroid and no other medications. He was actually needed to this hospital back in January incidentally for the same complaints and same diagnosis of hyponatremia. Reason For Visit: HYPONATREMIA,HYPOTHYROIDISM Physical Exam Vital Signs: Temp Pulse Resp BP Pulse Ox 97.6 F 55 L 16 127/57 H 100 02/13/18 07:32 02/13/18 07:32 02/13/18 07:32 02/13/18 07:32 02/13/18 07:32 Intake & Output 02/12/18 02/13/18 02/14/18 06:59 06:59 06:59 Intake Total 2458 2840 Output Total 2075 2650 Balance 383 190 Weight 73.3 kg 72.3 kg General appearance: PRESENT: no acute distress, thin, well-developed Head exam: PRESENT: atraumatic, normocephalic Eye exam: PRESENT: conjunctiva pink, EOMI, PERRLA. ABSENT: scleral icterus Ear exam: PRESENT: normal external ear exam Mouth exam: PRESENT: moist, tongue midline Neck exam: ABSENT: carotid bruit, JVD, lymphadenopathy, thyromegaly Respiratory exam: PRESENT: clear to auscultation betzaida. ABSENT: rales, rhonchi, wheezes Cardiovascular exam: PRESENT: RRR. ABSENT: diastolic murmur, rubs, systolic murmur Pulses: PRESENT: normal dorsalis pedis pul Vascular exam: PRESENT: normal capillary refill GI/Abdominal exam: PRESENT: normal bowel sounds, soft. ABSENT: distended, guarding, mass, organolmegaly, rebound, tenderness Rectal exam: PRESENT: deferred Extremities exam: PRESENT: full ROM. ABSENT: calf tenderness, clubbing, pedal edema Neurological exam: PRESENT: alert, awake, oriented to person, oriented to place , oriented to time, oriented to situation, CN II-XII grossly intact. ABSENT: motor sensory deficit Psychiatric exam: PRESENT: appropriate affect, normal mood. ABSENT: homicidal ideation, suicidal ideation Skin exam: PRESENT: dry, intact, warm. ABSENT: cyanosis, rash Results Laboratory Results: 02/13/18 04:11 02/13/18 04:11 02/13/18 02/13/18 02/13/18 04:11 04:11 04:11 WBC 4.5 RBC 4.04 L Hgb 12.3 L Hct 33.6 L MCV 83 MCH 30.4 MCHC 36.4 H RDW 13.0 Plt Count 194 Seg Neutrophils % 28.0 L Lymphocytes % 39.2 Monocytes % 11.4 Eosinophils % 20.3 H Basophils % 1.1 Absolute Neutrophils 1.3 L Absolute Lymphocytes 1.7 Absolute Monocytes 0.5 Absolute Eosinophils 0.9 H Absolute Basophils 0.1 Sodium 119.4 L* Potassium 4.3 Chloride 89 L Carbon Dioxide 18 L Anion Gap 12 BUN 11 Creatinine 0.81 Est GFR ( Amer) > 60 Est GFR (Non-Af Amer) > 60 Glucose 65 L Serum Osmolality 241 L Calcium 8.7 02/10/18 18:07 Clean Catch Midstream Urine Culture - Final Mixed Urogenital Yamini Assessment & Plan - Diagnosis (1) Dizziness Is this a current diagnosis for this admission?: Yes Plan: Improving. Still experiencing weakness (2) Hyponatremia Is this a current diagnosis for this admission?: Yes Plan: Did not improve with IV hydration. Serum os is low. Was given IV lasix by script artist. Will add free water restriction. Check serum cortisol (3) Hypothyroidism Qualifiers: Hypothyroidism type: acquired Qualified Code(s): E03.9 - Hypothyroidism, unspecified Is this a current diagnosis for this admission?: Yes Plan: Continue levoxyl (4) Nausea Is this a current diagnosis for this admission?: Yes Plan: Zofran and promethazine prn (5) Debility Is this a current diagnosis for this admission?: Yes Plan: Physical therapy evaluation - Time Time Spent with patient: 25-34 minutes Total Critical Time (Minutes): 15 Medications reviewed and adjusted accordingly: Yes
[2018-02-13] MEDS: ENOXAPARIN SODIUM INJ 40 MG/0.4 ML DISP.SYRIN SUBCUT SCH (10:30)
[2018-02-13] MEDS: DOCUSATE SODIUM 100 MG CAPSULE PO SCH (10:30)
--- NOTE | 2018-02-13 20:31 | XCELERA REPORT ---
[address] [address] Transthoracic Echocardiogram Report Name: SABRINA ARANGO Age: 83 yrs Gender: Male : 1935 Patient Status: Inpatient Patient Location: [address] [place], [place] [address] Study Date: 02/13/2018 10:46 AM Procedure: A two-dimensional transthoracic echocardiogram with color flow and Doppler was performed. The study was technically difficult with many images being suboptimal in quality. Study Quality: Technically suboptimal. Reason For Study: SOB History: Shortness of breath. Ordering Physician: TWILA READ Performed By: Paulina Cabello Interpretation Summary The left ventricle is normal in size. There is normal left ventricular wall thickness. Left ventricular systolic function is normal. LV EF is > than 65% Doppler measurements suggest normal left ventricular diastolic function The left ventricular wall motion is normal. The right ventricle is not well visualized secondary to technical limitations The left atrial size is normal. There is no evidence of mitral valve prolapse. There is no mitral valve stenosis. There is no mitral regurgitation noted. There is no aortic valve stenosis There is no LVOT obstruction. No aortic regurgitation is present. There is no tricuspid stenosis. There is a trace to mild amount of tricuspid regurgitation Right ventricular systolic pressure is normal. RVSP 29 mm of Hg ,with RA mean of 10. There is no pericardial effusion. MMode/2D Measurements & Calculations RVDd: 4.3 cm LVIDd: 4.1 cm FS: 31.8 % Ao root diam: 3.3 cm IVSd: 1.1 cm LVIDs: 2.8 cm EDV(Teich): 74.2 ml Ao root area: 8.5 cm2 LVPWd: 1.3 cm ESV(Teich): 29.4 ml LA dimension: 2.7 cm EF(Teich): 60.3 % LVOT diam: 2.1 cm LVOT area: 3.5 cm2 Doppler Measurements & Calculations MV E max glen: MV P1/2t max glen: Ao V2 max: LV V1 max P.0 cm/sec 66.0 cm/sec 110.8 cm/sec 2.7 mmHg MV A max glen: MV P1/2t: 79.2 msec Ao max PG: LV V1 max: 52.1 cm/sec 4.9 mmHg 82.5 cm/sec MV E/A: 1.3 MVA(P1/2t): 2.8 cm2 MV dec slope: МАРИЯ(V,D): 2.6 cm2 244.1 cm/sec2 PA V2 max: TR max glen: 58.3 cm/sec 215.8 cm/sec PA max PG: TR max P.6 mmHg 1.4 mmHg Left Ventricle The left ventricle is normal in size. There is normal left ventricular wall thickness. Left ventricular systolic function is normal. LV EF is > than 65%. Doppler measurements suggest normal left ventricular diastolic function. The left ventricular wall motion is normal. Right Ventricle The right ventricle is not well visualized secondary to technical limitations. Atria The right atrium is normal. The left atrial size is normal. Mitral Valve There is no evidence of mitral valve prolapse. There is no vegetation seen on the mitral valve. There is no mitral valve stenosis. There is no mitral regurgitation noted. Aortic Valve There is no aortic valve stenosis. There is no LVOT obstruction. No aortic regurgitation is present. Tricuspid Valve There is no tricuspid stenosis. There is a trace to mild amount of tricuspid regurgitation. Right ventricular systolic pressure is normal. RVSP 29 mm of Hg ,with RA mean of 10. Pulmonic Valve There is no pulmonic valvular stenosis. There is no pulmonic valvular regurgitation. Great Vessels The aortic root is not well visualized. Effusions There is no pericardial effusion. : TWILA READ > Marisabel Scott
[2018-02-14 05:30] LABS: ANION GAP 15 (5-19); BLOOD UREA NITROGEN 14 mg/dL (7-20); CALCIUM 9.6 mg/dL (8.4-10.2); CARBON DIOXIDE 19 mmol/L (22-30); CHLORIDE 87 mmol/L (98-107); GLUCOSE 64 mg/dL (75-110); POTASSIUM 4.1 mmol/L (3.6-5.0)
[2018-02-14 05:59] LABS: SODIUM 120.7 mmol/L (137-145)
[2018-02-14] MEDS ORDERED: HYDROCORTISONE 10 MG TABLET PO ONE (08:41)
--- NOTE | 2018-02-14 09:37 | PDOC PROGRESS REPORT ---
Subjective Progress Note for:: 02/14/18 Subjective:: Patient is seen resting in bed. He is awake, alert and oriented x 3. He denies any nausea, vomiting or abdominal pain. He has no diarrhea. He denies any chest pain, shortness of breath or dyspnea. Denies any significant arthralgias or myalgias. He still continues to feel weak. He did ambulate in the hallway with physical therapy yesterday. Remaining review of systems are negative. Reason For Visit: HYPONATREMIA,HYPOTHYROIDISM Physical Exam Vital Signs: Temp Pulse Resp BP Pulse Ox 97.7 F 62 18 107/55 L 99 02/14/18 07:41 02/14/18 07:41 02/14/18 07:41 02/14/18 07:41 02/14/18 07:41 Intake & Output 02/13/18 02/14/18 02/15/18 06:59 06:59 06:59 Intake Total 2840 900 Output Total 2650 1735 Balance 190 -835 Weight 72.3 kg 68 kg General appearance: PRESENT: no acute distress, thin, well-developed Head exam: PRESENT: atraumatic, normocephalic Eye exam: PRESENT: conjunctiva pink, EOMI, PERRLA. ABSENT: scleral icterus Ear exam: PRESENT: normal external ear exam Mouth exam: PRESENT: moist, tongue midline Neck exam: ABSENT: carotid bruit, JVD, lymphadenopathy, thyromegaly Respiratory exam: PRESENT: clear to auscultation betzaida. ABSENT: rales, rhonchi, wheezes Cardiovascular exam: PRESENT: RRR. ABSENT: diastolic murmur, rubs, systolic murmur Pulses: PRESENT: normal dorsalis pedis pul Vascular exam: PRESENT: normal capillary refill GI/Abdominal exam: PRESENT: normal bowel sounds, soft. ABSENT: distended, guarding, mass, organolmegaly, rebound, tenderness Rectal exam: PRESENT: deferred Extremities exam: PRESENT: full ROM. ABSENT: calf tenderness, clubbing, pedal edema Neurological exam: PRESENT: alert, awake, oriented to person, oriented to place , oriented to time, oriented to situation, CN II-XII grossly intact. ABSENT: motor sensory deficit Psychiatric exam: PRESENT: appropriate affect, normal mood. ABSENT: homicidal ideation, suicidal ideation Skin exam: PRESENT: dry, intact, warm. ABSENT: cyanosis, rash Results Laboratory Results: 02/13/18 04:11 02/14/18 04:07 02/13/18 02/14/18 10:35 04:07 Sodium 120.7 L* Potassium 4.1 Chloride 87 L Carbon Dioxide 19 L Anion Gap 15 BUN 14 Creatinine 0.95 Est GFR ( Amer) > 60 Est GFR (Non-Af Amer) > 60 Glucose 64 L Calcium 9.6 Urine Osmolality 250 L Assessment & Plan - Diagnosis (1) Dizziness Is this a current diagnosis for this admission?: Yes Plan: Improving. Still experiencing weakness (2) Hyponatremia Is this a current diagnosis for this admission?: Yes Plan: Did not improve with IV hydration. Sodium today is 120.7. Serum os and urine os are low. Most likely secondary to SIADH. Will consult nephrology for their input (3) Hypothyroidism Qualifiers: Hypothyroidism type: acquired Qualified Code(s): E03.9 - Hypothyroidism, unspecified Is this a current diagnosis for this admission?: Yes Plan: Continue levoxyl (4) Nausea Is this a current diagnosis for this admission?: Yes Plan: Resolved (5) Debility Is this a current diagnosis for this admission?: Yes Plan: Continue PT - Time Time Spent with patient: 25-34 minutes Total Critical Time (Minutes): 15 Medications reviewed and adjusted accordingly: Yes
[2018-02-14] MEDS ORDERED: NORMAL SALINE 500 ML IV ONE (10:30)
[2018-02-14] MEDS: ENOXAPARIN SODIUM INJ 40 MG/0.4 ML DISP.SYRIN SUBCUT SCH (11:19)
[2018-02-14] MEDS: LEVOTHYROXINE SODIUM 0.05 MG TABLET PO SCH (11:20)
[2018-02-14] MEDS: DOCUSATE SODIUM 100 MG CAPSULE PO SCH (11:20)
[2018-02-14] MEDS ORDERED: NORMAL SALINE 1000 ML 1,000 ML IV PRN (13:07)
--- NOTE | 2018-02-14 15:03 | PDOC CONSULTATION ---
Consultation Consult Date: 02/14/18 Consult reason:: Chronic hyponatremia History of Present Illness Admission Date/PCP: 02/10/18 15:55 History of Present Illness: SABRINA ARANGO is a 83 year old maleWith an otherwise unremarkable past medical history but for chronic hyponatremia was admitted with history of progressive and persistent muscle cramps and weakness.His granddaughter who is his caregiver and main history sound installation worker states that he has had this chronic hyponatremia for many many years even before he moved here from [place].When the sodium gets to a critical level he starts to have increasing weakness and muscle cramps and that brings him to the hospital. He has had multiple admissions in the past for the same but no definitive diagnosis has been made. Over the last few days he has not been eating and drinking much. There is no history of progressive orthostasis.Patient denies any history of headaches, seizures, diplopia.No complaints of any abdominal pains. Labs and medications were reviewed.He has a low serum and urine osmolality with a high urine sodium and a low serum morning cortisol. Past Medical History Endocrine Medical History: Reports: Hypothyroidism Renal/ Medical History: Denies: Hyponatremia Psychiatric Medical History: Denies: Depression Social History Lives with: Family Smoking Status: Never Smoker Frequency of Alcohol Use: None Hx Recreational Drug Use: No Drugs: None Hx Prescription Drug Abuse: No - Advance Directive Resuscitation Status: Full Code Family History Parental Family History Reviewed: Yes - Negative for similar disease. Children Family History Reviewed: No Sibling(s) Family History Reviewed.: No Medication/Allergy Home Medications: Levothyroxine Sodium [Synthroid] 125 mcg PO QAM 01/02/18 Allergies/Adverse Reactions: No Known Allergies Allergy (Verified 02/10/18 14:33) Review of Systems Constitutional: PRESENT: anorexia, fatigue, weakness. ABSENT: chills, fever(s) , headache(s), night sweats, weight loss Eyes: ABSENT: visual disturbances Nose, Mouth, and Throat: ABSENT: mouth pain, sore throat Cardiovascular: ABSENT: chest pain, dyspnea on exertion, edema, orthropnea, palpitations Respiratory: ABSENT: hemoptysis Gastrointestinal: ABSENT: abdominal pain, bloating, constipation, diarrhea Genitourinary: ABSENT: dysuria, hematuria Integumentary: ABSENT: lesions, pruritus, rash Neurological: ABSENT: abnormal movements, abnormal speech, convulsions, dizziness, focal weakness Psychiatric: ABSENT: anxiety Hematologic/Lymphatic: ABSENT: easy bruising, lymphadenopathy Physical Exam Vital Signs: Temp Pulse Resp BP Pulse Ox 97.5 F 60 18 89/51 L 98 02/14/18 10:46 02/14/18 10:46 02/14/18 10:46 02/14/18 10:46 02/14/18 10:46 Intake & Output 02/13/18 02/14/18 02/15/18 06:59 06:59 06:59 Intake Total 2840 900 275 Output Total 2650 1735 125 Balance 190 -835 150 Weight 72.3 kg 68 kg General appearance: PRESENT: no acute distress, thin Eye exam: PRESENT: conjunctiva pink, EOMI, PERRLA Ear exam: PRESENT: normal external ear exam Mouth exam: PRESENT: neck supple. ABSENT: moist Neck exam: ABSENT: lymphadenopathy, meningismus, tenderness, thyromegaly, tracheal deviation Respiratory exam: PRESENT: clear to auscultation betzaida. ABSENT: crackles, rhonchi Cardiovascular exam: PRESENT: +S1, +S2 GI/Abdominal exam: PRESENT: normal bowel sounds, soft. ABSENT: diminished bowel sounds, distended, organomegaly, tenderness Extremities exam: ABSENT: pedal edema Neurological exam: PRESENT: awake, oriented to person, oriented to place Psychiatric exam: PRESENT: appropriate affect Skin exam: PRESENT: dry. ABSENT: erythema, mottled, rash Results Laboratory Results: 02/13/18 04:11 02/14/18 04:07 02/14/18 04:07 Sodium 120.7 L* Potassium 4.1 Chloride 87 L Carbon Dioxide 19 L Anion Gap 15 BUN 14 Creatinine 0.95 Est GFR ( Amer) > 60 Est GFR (Non-Af Amer) > 60 Glucose 64 L Calcium 9.6 Assessment & Plan - Diagnosis (1) Addisons disease Plan: I would go ahead and do an ACTH and the ACTH stimulation test.Distinguish between primary and secondary.Following that I would start him on prednisone. Meanwhile start him on a liter of normal saline. Discussed with hospitalist. (2) Hyponatremia Is this a current diagnosis for this admission?: Yes Plan: Chronic. As mentioned earlier. (3) Hypothyroidism Qualifiers: Hypothyroidism type: acquired Qualified Code(s): E03.9 - Hypothyroidism, unspecified Is this a current diagnosis for this admission?: Yes Plan: On replacements. Unlikely the cause for his chronic hyponatremia. (4) Hypotension Plan: See the response to volume and starting replacements of cortisone.
[2018-02-14] MEDS: HYDROCORTISONE 10 MG TABLET PO SCH (17:58)
[2018-02-15 05:24] LABS: ANION GAP 13 (5-19); BLOOD UREA NITROGEN 14 mg/dL (7-20); CARBON DIOXIDE 20 mmol/L (22-30); CHLORIDE 97 mmol/L (98-107); GLUCOSE 82 mg/dL (75-110); SODIUM 129.5 mmol/L (137-145)
[2018-02-15] MEDS ORDERED: COSYNTROPIN INJ 0.25 MG VIAL IV ONE (08:00)
[2018-02-15] MEDS: LEVOTHYROXINE SODIUM 0.05 MG TABLET PO SCH (08:56)
--- NOTE | 2018-02-15 10:49 | PDOC PROGRESS REPORT ---
Subjective Progress Note for:: 02/15/18 Subjective:: Patient was sitting up comfortably in his bed. At the time he said he was feeling better than he did yesterday. He said that his appetite has come back and that he was able to eat all of his breakfast this morning. Denies chest pain , SOB, N/V/D/C. Reason For Visit: HYPONATREMIA,HYPOTHYROIDISM Physical Exam Vital Signs: Temp Pulse Resp BP Pulse Ox 97.8 F 62 18 127/66 H 100 02/15/18 08:12 02/15/18 08:12 02/15/18 08:12 02/15/18 08:12 02/15/18 08:12 Intake & Output 02/14/18 02/15/18 02/16/18 06:59 06:59 06:59 Intake Total 900 2750 Output Total 1735 2075 Balance -835 675 Weight 68 kg General appearance: PRESENT: no acute distress, well-developed, well-nourished Mouth exam: PRESENT: moist, neck supple Neck exam: PRESENT: full ROM. ABSENT: JVD Respiratory exam: PRESENT: clear to auscultation betzaida. ABSENT: accessory muscle use, crackles, rhonchi, wheezes Cardiovascular exam: PRESENT: +S1, +S2 GI/Abdominal exam: PRESENT: normal bowel sounds, soft. ABSENT: diminished bowel sounds, distended, organomegaly, tenderness Extremities exam: ABSENT: pedal edema, tenderness, +1 edema, +2 edema Musculoskeletal exam: PRESENT: normal inspection. ABSENT: tenderness Neurological exam: PRESENT: alert, awake, oriented to person, oriented to place , oriented to time, oriented to situation Psychiatric exam: PRESENT: appropriate affect, normal mood Skin exam: PRESENT: dry, intact, warm. ABSENT: cyanosis Results Laboratory Results: 02/13/18 04:11 02/15/18 04:17 02/15/18 04:17 Sodium 129.5 L Potassium 4.0 Chloride 97 L Carbon Dioxide 20 L Anion Gap 13 BUN 14 Creatinine 0.92 Est GFR ( Amer) > 60 Est GFR (Non-Af Amer) > 60 Glucose 82 Calcium 9.0 Assessment & Plan - Diagnosis (1) Addisons disease Is this a current diagnosis for this admission?: Yes Plan: Currently awaiting studies that were previously mentioned in Dr. Blackwell note. (2) Hyponatremia Is this a current diagnosis for this admission?: Yes Plan: Improved, will look to hold the normal saline for now. Will recheck sodium at 1300. If it is corrected by 10 or more, than will look to give a dose of desmopressin and some D5W to prevent osmotic demyelination syndrome. (3) Hypotension Plan: looks to be improved since receiving normal saline (4) Hypothyroidism Qualifiers: Hypothyroidism type: acquired Qualified Code(s): E03.9 - Hypothyroidism, unspecified Is this a current diagnosis for this admission?: Yes Plan: on synthroid - Notes Notes: Case was discussed with Dr. Blackwell
[2018-02-15] MEDS: HYDROCORTISONE 10 MG TABLET PO SCH ×2 (11:42→18:27)
[2018-02-15] MEDS: ENOXAPARIN SODIUM INJ 40 MG/0.4 ML DISP.SYRIN SUBCUT SCH (11:42)
[2018-02-15] MEDS: DOCUSATE SODIUM 100 MG CAPSULE PO SCH (11:43)
--- NOTE | 2018-02-15 14:31 | PDOC PROGRESS REPORT ---
Subjective Progress Note for:: 02/15/18 Subjective:: 83 yr old male with chronic hyponatremia presented progressively worsening weakness and persistent muscle cramps. A.m. cortisol was low. He has a high urine sodium. Low serum and urine osmolality. Plan for ACTH stim test Reason For Visit: HYPONATREMIA,HYPOTHYROIDISM Physical Exam Vital Signs: Temp Pulse Resp BP Pulse Ox 98.3 F 59 L 16 119/68 97 02/15/18 04:46 02/15/18 07:00 02/15/18 04:46 02/15/18 04:46 02/15/18 04:46 Intake & Output 02/14/18 02/15/18 02/16/18 06:59 06:59 06:59 Intake Total 900 2750 Output Total 1735 2075 Balance -835 675 Weight 68 kg General appearance: PRESENT: no acute distress Head exam: PRESENT: normocephalic Eye exam: ABSENT: scleral icterus Ear exam: PRESENT: normal external ear exam Mouth exam: PRESENT: moist Neck exam: ABSENT: tracheal deviation Respiratory exam: PRESENT: symmetrical, unlabored. ABSENT: wheezes Cardiovascular exam: PRESENT: RRR GI/Abdominal exam: PRESENT: normal bowel sounds, soft. ABSENT: tenderness Rectal exam: PRESENT: deferred Neurological exam: PRESENT: alert, awake Results Laboratory Results: 02/13/18 04:11 02/15/18 04:17 02/15/18 04:17 Sodium 129.5 L Potassium 4.0 Chloride 97 L Carbon Dioxide 20 L Anion Gap 13 BUN 14 Creatinine 0.92 Est GFR ( Amer) > 60 Est GFR (Non-Af Amer) > 60 Glucose 82 Calcium 9.0 Assessment & Plan - Diagnosis (1) Addisons disease Is this a current diagnosis for this admission?: Yes Plan: Plan for ACTH stim test to distinguish between primary versus secondary Roseboom' s disease. Continue hydrocortisone. (2) Hyponatremia Is this a current diagnosis for this admission?: Yes Plan: As above. Improving. (3) Hypothyroidism Qualifiers: Hypothyroidism type: acquired Qualified Code(s): E03.9 - Hypothyroidism, unspecified Is this a current diagnosis for this admission?: Yes Plan: Continue Synthroid. (4) Nausea Is this a current diagnosis for this admission?: Yes Plan: Due to hyponatremia. (5) Debility Is this a current diagnosis for this admission?: Yes Plan: Fall precautions and physical therapy. Treat underlying cause. 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 Continue hydrocortisone. - Time Time Spent with patient: 35 or more minutes
[2018-02-15 16:21] LABS: ANION GAP 12 (5-19); BLOOD UREA NITROGEN 13 mg/dL (7-20); CALCIUM 9.6 mg/dL (8.4-10.2); CARBON DIOXIDE 19 mmol/L (22-30); CHLORIDE 98 mmol/L (98-107); GLUCOSE 121 mg/dL (75-110); POTASSIUM 4.4 mmol/L (3.6-5.0); SODIUM 129.1 mmol/L (137-145)
[2018-02-16 05:56] LABS: ANION GAP 12 (5-19); BLOOD UREA NITROGEN 11 mg/dL (7-20); CALCIUM 9.9 mg/dL (8.4-10.2); CARBON DIOXIDE 21 mmol/L (22-30); CHLORIDE 103 mmol/L (98-107); GLUCOSE 88 mg/dL (75-110); PHOSPHORUS 3.3 mg/dL (2.5-4.5); POTASSIUM 4.1 mmol/L (3.6-5.0); SODIUM 135.7 mmol/L (137-145)
[2018-02-16] MEDS ORDERED: COSYNTROPIN INJ 0.25 MG VIAL IV ONE (08:00)
[2018-02-16] MEDS: LEVOTHYROXINE SODIUM 0.05 MG TABLET PO SCH (10:52)
[2018-02-16] MEDS: DOCUSATE SODIUM 100 MG CAPSULE PO SCH (10:53)
[2018-02-16] MEDS: HYDROCORTISONE 10 MG TABLET PO SCH ×2 (10:57→18:22)
[2018-02-16] MEDS: ENOXAPARIN SODIUM INJ 40 MG/0.4 ML DISP.SYRIN SUBCUT SCH (11:02)
--- NOTE | 2018-02-16 14:24 | PDOC PROGRESS REPORT ---
Subjective Progress Note for:: 02/16/18 Subjective:: Patient was seen this morning sitting in his bed. At the time he was agitated and had ripped out his IV. He believed that everyone was messing with him. He said that someone was taking his phone and moving the numbers around so he was dialing the wrong numbers. He also was refusing to have more labs drawn or any physical exams. The nurse in charge of his care was able to contact the grand kids and get one in to talk to him. At the time he became less agitated and allowed for labs to be drawn and for me to examine him. He said that he does not want very many people to come into his room because it confuses him. Patient has been receiving steroids for the past couple of days and this started with this mornings dose of cosyntropin. Reason For Visit: HYPONATREMIA,HYPOTHYROIDISM Physical Exam Vital Signs: Temp Pulse Resp BP Pulse Ox 98.8 F 86 18 133/72 H 99 02/16/18 12:04 02/16/18 12:04 02/16/18 12:04 02/16/18 12:04 02/16/18 12:04 Intake & Output 02/15/18 02/16/18 02/17/18 06:59 06:59 06:59 Intake Total 2750 1420 Output Total 2075 1900 Balance 675 -480 Weight 67.6 kg General appearance: PRESENT: no acute distress, well-developed, well-nourished. ABSENT: cooperative Mouth exam: PRESENT: moist, neck supple Neck exam: PRESENT: full ROM. ABSENT: JVD Respiratory exam: PRESENT: clear to auscultation betzaida. ABSENT: accessory muscle use, crackles, rales, rhonchi, wheezes Cardiovascular exam: PRESENT: +S1, +S2 GI/Abdominal exam: PRESENT: normal bowel sounds, soft. ABSENT: diminished bowel sounds, distended, organomegaly, tenderness Extremities exam: ABSENT: pedal edema, tenderness, +1 edema, +2 edema Musculoskeletal exam: PRESENT: normal inspection. ABSENT: tenderness Neurological exam: PRESENT: altered, awake, oriented to person, oriented to place Psychiatric exam: PRESENT: agitated, anxious, unusual affect. ABSENT: appropriate affect, normal mood Skin exam: PRESENT: dry, intact, warm Results Laboratory Results: 02/13/18 04:11 02/16/18 04:27 02/15/18 02/16/18 15:36 04:27 Sodium 129.1 L 135.7 L Potassium 4.4 4.1 Chloride 98 103 Carbon Dioxide 19 L 21 L Anion Gap 12 12 BUN 13 11 Creatinine 0.84 0.89 Est GFR ( Amer) > 60 > 60 Est GFR (Non-Af Amer) > 60 > 60 Glucose 121 H 88 Calcium 9.6 9.9 Phosphorus 3.3 Magnesium 2.3 Assessment & Plan - Diagnosis (1) Addisons disease Is this a current diagnosis for this admission?: Yes Plan: awaiting results (2) Hyponatremia Is this a current diagnosis for this admission?: Yes Plan: looks to be at baseline (3) Hypotension Plan: resolved (4) Hypothyroidism Qualifiers: Hypothyroidism type: acquired Qualified Code(s): E03.9 - Hypothyroidism, unspecified Is this a current diagnosis for this admission?: Yes Plan: on synthroid
--- NOTE | 2018-02-16 15:45 | PDOC PROGRESS REPORT ---
Subjective Progress Note for:: 02/16/18 Subjective:: 83 yr old male with chronic hyponatremia presented progressively worsening weakness and persistent muscle cramps. A.m. cortisol was low. He has a high urine sodium. Low serum and urine osmolality. ACTH stim test. today. Feels good, no complaints. Reason For Visit: HYPONATREMIA,HYPOTHYROIDISM Physical Exam Vital Signs: Temp Pulse Resp BP Pulse Ox 98.8 F 67 18 133/72 H 99 02/16/18 12:04 02/16/18 14:00 02/16/18 12:04 02/16/18 12:04 02/16/18 12:04 Intake & Output 02/15/18 02/16/18 02/17/18 06:59 06:59 06:59 Intake Total 2750 1420 500 Output Total 2075 1900 400 Balance 675 -480 100 Weight 67.6 kg General appearance: PRESENT: no acute distress Head exam: PRESENT: normocephalic Mouth exam: PRESENT: moist Respiratory exam: PRESENT: clear to auscultation betzaida, symmetrical, unlabored Cardiovascular exam: PRESENT: RRR GI/Abdominal exam: PRESENT: normal bowel sounds, soft. ABSENT: tenderness Psychiatric exam: PRESENT: appropriate affect Results Laboratory Results: 02/13/18 04:11 02/16/18 04:27 02/15/18 02/16/18 15:36 04:27 Sodium 129.1 L 135.7 L Potassium 4.4 4.1 Chloride 98 103 Carbon Dioxide 19 L 21 L Anion Gap 12 12 BUN 13 11 Creatinine 0.84 0.89 Est GFR ( Amer) > 60 > 60 Est GFR (Non-Af Amer) > 60 > 60 Glucose 121 H 88 Calcium 9.6 9.9 Phosphorus 3.3 Magnesium 2.3 Assessment & Plan - Diagnosis (1) Addisons disease Is this a current diagnosis for this admission?: Yes Plan: Plan for ACTH stim test to distinguish between primary versus secondary Strafford' s disease. Continue hydrocortisone. (2) Hyponatremia Is this a current diagnosis for this admission?: Yes Plan: As above. Improved (3) Hypothyroidism Qualifiers: Hypothyroidism type: acquired Qualified Code(s): E03.9 - Hypothyroidism, unspecified Is this a current diagnosis for this admission?: Yes Plan: Continue Synthroid. (4) Nausea Is this a current diagnosis for this admission?: Yes Plan: Due to hyponatremia. Improving. (5) Debility Is this a current diagnosis for this admission?: Yes Plan: Fall precautions and physical therapy. 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 Continue hydrocortisone. - Time Time Spent with patient: 35 or more minutes
[2018-02-17 05:42] LABS: ANION GAP 15 (5-19); BLOOD UREA NITROGEN 18 mg/dL (7-20); CALCIUM 9.7 mg/dL (8.4-10.2); CARBON DIOXIDE 21 mmol/L (22-30); CHLORIDE 102 mmol/L (98-107); GLUCOSE 98 mg/dL (75-110); POTASSIUM 4.6 mmol/L (3.6-5.0)
[2018-02-17] MEDS: LEVOTHYROXINE SODIUM 0.05 MG TABLET PO SCH (10:14)
[2018-02-17] MEDS: DOCUSATE SODIUM 100 MG CAPSULE PO SCH (10:14)
[2018-02-17] MEDS: HYDROCORTISONE 10 MG TABLET PO SCH (10:20)
--- NOTE | 2018-02-17 11:57 | PDOC PROGRESS REPORT ---
Subjective Progress Note for:: 02/17/18 Subjective:: Patient looks to be less agitated than yesterday. Currently is laying comfortably. He denies any chest pain or SOB. Has prior history of a pituitary tumor. Reason For Visit: HYPONATREMIA,HYPOTHYROIDISM Physical Exam Vital Signs: Temp Pulse Resp BP Pulse Ox 97.8 F 57 L 14 130/70 H 99 02/17/18 07:23 02/17/18 07:23 02/17/18 07:23 02/17/18 07:23 02/17/18 07:23 Intake & Output 02/16/18 02/17/18 02/18/18 06:59 06:59 06:59 Intake Total 1420 1539 Output Total 1900 575 Balance -480 964 Weight 67.6 kg 69 kg General appearance: PRESENT: no acute distress, well-developed, well-nourished Mouth exam: PRESENT: moist, neck supple Neck exam: PRESENT: full ROM. ABSENT: JVD Respiratory exam: PRESENT: clear to auscultation betzaida. ABSENT: crackles, rales, rhonchi, wheezes Cardiovascular exam: PRESENT: +S1, +S2 GI/Abdominal exam: PRESENT: normal bowel sounds, soft. ABSENT: diminished bowel sounds, distended, organomegaly, tenderness Extremities exam: ABSENT: pedal edema, tenderness, +1 edema, +2 edema Musculoskeletal exam: PRESENT: normal inspection. ABSENT: tenderness Neurological exam: PRESENT: alert, awake, oriented to person, oriented to place , oriented to time, oriented to situation Psychiatric exam: PRESENT: appropriate affect, normal mood Skin exam: PRESENT: dry, intact, warm. ABSENT: cyanosis Results Laboratory Results: 02/13/18 04:11 02/17/18 04:28 02/17/18 04:28 Sodium 138.0 Potassium 4.6 Chloride 102 Carbon Dioxide 21 L Anion Gap 15 BUN 18 Creatinine 1.03 Est GFR ( Amer) > 60 Est GFR (Non-Af Amer) > 60 Glucose 98 Calcium 9.7 Assessment & Plan - Diagnosis (1) Addisons disease Is this a current diagnosis for this admission?: Yes Plan: Results came back showing secondary adrenal insufficiency. Despite not getting a ACTH at the being. Adrenal glands reacted to the cosyntropin. At this point and time I recommend getting an MRI or CT of the pituitary to see if surgery is needed. For now patient should remain on cortisol replacement. (2) Hyponatremia Is this a current diagnosis for this admission?: Yes Plan: At baseline; at this time nephrology will be signing off the case. Please reconsult if needed (3) Hypotension Plan: looks to be improved since receiving normal saline (4) Hypothyroidism Qualifiers: Hypothyroidism type: acquired Qualified Code(s): E03.9 - Hypothyroidism, unspecified Is this a current diagnosis for this admission?: Yes Plan: on synthroid
[2018-02-17 14:22] VITALS: BP 131/73
--- NOTE | 2018-02-18 07:43 | PDOC DISCHARGE SUMMARY ---
General - Admit/Disc Date/PCP Admission Date/Primary Care Provider: 02/10/18 15:55 Discharge Date: 02/17/18 - Discharge Diagnosis (1) Secondary adrenal insufficiency Is this a current diagnosis for this admission?: Yes Summary: Pt has hx of pituitary mass that the medical team learned about on the day of discharge, he has not wanted any intervention. We recommended on discharge to pt and caregiver that he see his doctor this week for evaluation of the pituitary lesion if he so desires. Otherwise, he responded well to fluid hydration and steroids administration. He was discharged on hydrocortisone 10 mg po BID. (2) Hyponatremia Is this a current diagnosis for this admission?: Yes Summary: resolved to baseline fluid administration and steroids, without complication (3) Hypotension Is this a current diagnosis for this admission?: Yes Summary: resolved with fluid hydration and steroid administration (4) Hypothyroidism Is this a current diagnosis for this admission?: Yes Summary: pts TSH was low on admission and his synthroid dose was decreased, new presciption given for discharge, he is advised to notify his PCP of the change so thyroid fxn can be monitored - Additional Information Resuscitation Status: Full Code Discharge Diet: As Tolerated Discharge Activity: Balance Activity w/Rest Prescriptions: Hydrocortisone [Cortef 10 mg Tablet] 10 mg PO BID 30 Days #60 tablet Levothyroxine Sodium [Synthroid 0.05 mg Tablet] 0.05 mg PO QAM 30 Days #30 tablet Home Medications: Levothyroxine Sodium [Synthroid] 125 mcg PO QAM 01/02/18 Hydrocortisone [Cortef 10 mg Tablet] 10 mg PO BID 30 Days #60 tablet 02/17/18 Levothyroxine Sodium [Synthroid 0.05 mg Tablet] 0.05 mg PO QAM 30 Days #30 tablet 02/17/18 History of Present Illness History of Present Illness: SABRINA ARANGO is a 83 year old male Patient was brought to the emergency room complaints of generalized weakness and malaise for about 3 days. Otherwise an unremarkable past medical hx except for hypothyroidism. He apparently had been doing well up to 3 days ago. He is usually ambulatory without any assistive device. He lives with his granddaughter who says that prior to recently moving in with him and had been independent and doing okay by himself. He was brought to the emergency room for further evaluation due to basically laying in bed all day yesterday with cramping, muscle aches and weakness. He has had this chronic hyponatremia for many many years even before he moved here from [place].When the sodium gets to a critical level he starts to have increasing weakness and muscle cramps and that brings him to the hospital. He has had multiple admissions in the past for the same but no definitive diagnosis has been made. On admit there is no complaints of fever, chest pain, diarrhea, nausea or vomiting or abdominal pain. Patient is usually takes only Synthroid and no other medications. He was actually needed to this hospital back in January incidentally for the same complaints and same diagnosis of hyponatremia. Hospital Course Hospital Course: please see hospital course by problem list Physical Exam Vital Signs: Temp Pulse Resp BP Pulse Ox 97.5 F 62 16 131/73 H 99 02/17/18 14:00 02/17/18 14:00 02/17/18 14:00 02/17/18 14:00 02/17/18 14:00 Intake & Output 02/17/18 02/18/18 02/19/18 06:59 06:59 06:59 Intake Total 1539 800 Output Total 575 Balance 964 800 Weight 69 kg General appearance: PRESENT: no acute distress, cooperative, thin Head exam: PRESENT: atraumatic, normocephalic Eye exam: PRESENT: EOMI Ear exam: PRESENT: normal external ear exam Mouth exam: PRESENT: moist, neck supple, tongue midline Respiratory exam: PRESENT: clear to auscultation [place], unlabored. ABSENT: rales , rhonchi, wheezes Cardiovascular exam: PRESENT: RRR. ABSENT: systolic murmur Pulses: PRESENT: normal radial pulses GI/Abdominal exam: PRESENT: normal bowel sounds, soft. ABSENT: distended, firm , guarding, tenderness Extremities exam: ABSENT: pedal edema Neurological exam: PRESENT: alert, awake, oriented to person, oriented to place , oriented to situation, CN II-XII grossly intact Psychiatric exam: PRESENT: appropriate affect. ABSENT: anxious Skin exam: PRESENT: dry, warm Results Laboratory Results: 02/13/18 04:11 02/17/18 04:28 Qualifiers - * PATIENT BEING DISCHARGED WITH ANY OF THE FOLLOWING DIAGNOSIS: No Plan Discharge Plan: to home with caregiver Time Spent: Greater than 30 Minutes - >30 min spent with patient, in collaborating with patients nurse and in coordinating discharge
== END 2018-02-17 14:51 | disposition home or self-care (01) | DRG 641 ==
LOC: ER 13:06 → EH 15:55 → 3N 18:41
PROVIDERS: ADMIT Internal Medicine; ATTEND Internal Medicine
PROC: 3E0F73Z Introduction of Anti-inflammatory into Respiratory Tract, Via Natural or Artificial Opening (ICD-10-PCS; principal; 2018-02-10)
DX: E87.1 Hypo-osmolality and hyponatremia (principal); E27.1 Primary adrenocortical insufficiency; E86.0 Dehydration; E03.9 Hypothyroidism, unspecified; I95.9 Hypotension, unspecified; D72.1 Eosinophilia; I95.1 Orthostatic hypotension; Z79.899 Other long term (current) drug therapy; Z82.49 Family history of ischemic heart disease and other diseases of the circulatory system
CPT/HCPCS: 36415; 80048; 80053; 81001; 82533; 82962; 83605; 83735; 83930; 83935; 84100; 84300; 84439; 84443; 84481; 85025; 85610; 87040; 87086; 93005; 93010; 93306; 99285; G8978-GP; G8979-GP; J0834; J1650; J1940; J2405; J2550; J3490; J7030; J7040